=== PATIENT | female | born 1965 | race Caucasian/White ===

== ENCOUNTER 2017-09-17 17:19 | Emergency (ER) | payer OTHER ==
[~2017-09-17] VITALS: Ht 160 cm; Wt 53.5 kg
[~2017-09-17 17:19] MED LIST: AUGM875T PO; BACT800T5 PO; FLUT50SP EACH NARE; IBUP600 PO; IBUP600T26 PO; METH10TA PO; ST J81CH PO; [UNRECOGNIZED DRUG - OTHER] TOP
[2017-09-17 17:20] VITALS: BP 119/73; PULSE 63; RESP 15; TEMP 97.8; O2SAT 97
--- NOTE | 2017-09-17 17:36 | PD ---
HPI Chief Complaint: Psychiatric Symptoms Time Seen by Provider: 17:30 Travel History International Travel<30 days: No Contact w/Intl Traveler<30days: No History of Present Illness HPI 52-year-old female brought in by police under the Castellon act for suicidal ideation. Castellon act states that the patient is upset about her recent of her friend, and made statements that she should go ahead and end her life as well. The patient then obtained a kitchen knife before her friend took it away and called the police. Patient appears intoxicated. She is a poor historian. Patient has history of MRSA. Patient has no known drug allergies. PFSH Past Medical History Hx Anticoagulant Therapy: No Arthritis: Yes Asthma: Yes Autoimmune Disease: No Anxiety: Yes Depression: Yes Heart Rhythm Problems: No Cancer: No Cardiovascular Problems: No High Cholesterol: No Chemotherapy: No Chest Pain: No Congestive Heart Failure: No COPD: No Cerebrovascular Accident: No Diabetes: No Diminished Hearing: No Endocrine: No GERD: No Genitourinary: No Hiatal Hernia: No Immune Disorder: No Kidney Stones: No Musculoskeletal: No Neurologic: Yes Psychiatric: Yes (BIPOLAR) Reproductive: Yes Respiratory: Yes Migraines: Yes Radiation Therapy: No Renal Failure: No Seizures: No Sickle Cell Disease: No Sleep Apnea: No Thyroid Disease: No Ulcer: No Menopausal: Yes Ectopic : Yes Tubal Ligation: Yes Past Surgical History Abdominal Surgery: No AICD: No Arteriovenous Shunt: No Cardiac Surgery: No Ear Surgery: Yes (tubes in childhood) Endocrine Surgery: No Eye Surgery: No Genitourinary Surgery: No Gynecologic Surgery: Yes (HYSTERECTOMY 1995) Hysterectomy: Yes Joint Replacement: No Oral Surgery: Yes (wisdom teeth) Pacemaker: No Thoracic Surgery: No Tonsillectomy: Yes Other Surgery: Yes (FISTULA) Social History Alcohol Use: Yes (OCC) Tobacco Use: Yes (1/2 PPD) Substance Use: Yes Allergies-Medications (Allergen,Severity, Reaction): Coded Allergies: *MDRO Multi-Drug Resistant Organism (Verified Adverse Reaction, Unknown, 05/08/16) MRSA 2014 MRSA leg wound 01/27/15. Reported Meds & Prescriptions Reported Meds & Active Scripts Active Reported Methadone (Methadone HCl) 5 Mg Tab 2.5 Mg PO DAILY Review of Systems ROS Limitations: Intoxication, Poor Historian Except as stated in HPI: all other systems reviewed are Neg General / Constitutional: No: Fever Eyes: No: Visual changes HENT: No: Headaches Cardiovascular: No: Chest Pain or Discomfort Respiratory: No: Shortness of Breath Gastrointestinal: No: Abdominal Pain Genitourinary: No: Dysuria Musculoskeletal: No: Pain Skin: No Rash Neurologic: No: Weakness Psychiatric: No: Depression Endocrine: No: Polydipsia Hematologic/Lymphatic: No: Easy Bruising Physical Exam Exam Limitations: Intoxication, Poor Historian Narrative GENERAL: SKIN: Warm and dry. HEAD: Atraumatic. Normocephalic. EYES: Pupils equal and round. No scleral icterus. No injection or drainage. ENT: No nasal bleeding or discharge. Mucous membranes pink and moist. NECK: Trachea midline. No JVD. CARDIOVASCULAR: Regular rate and rhythm. RESPIRATORY: No accessory muscle use. Clear to auscultation. Breath sounds equal bilaterally. GASTROINTESTINAL: Abdomen soft, non-tender, nondistended. Hepatic and splenic margins not palpable. MUSCULOSKELETAL: Extremities without clubbing, cyanosis, or edema. No obvious deformities. NEUROLOGICAL: Awake and alert. No obvious cranial nerve deficits. Motor grossly within normal limits. Five out of 5 muscle strength in the arms and legs. Normal speech. PSYCHIATRIC: Appropriate mood and affect; insight and judgment normal. Data Data Last Documented VS Vital Signs Date Time Temp Pulse Resp B/P (MAP) Pulse Ox O2 Delivery O2 Flow Rate FiO2 09/17/17 17:20 97.8 63 15 119/73 (88) 97 Orders Orders Complete Blood Count With Diff (09/17/17 17:32) Comprehensive Metabolic Panel (09/17/17 17:32) Thyroid Stimulating Hormone (09/17/17 17:32) Urinalysis - C+S If Indicated (09/17/17 17:32) Psych Screen (09/17/17 17:32) Drug Screen, Random Urine (09/17/17 17:32) Alcohol (Ethanol) (09/17/17 17:32) Labs Laboratory Tests Test 09/17/17 17:45 White Blood Count 7.9 TH/MM3 Red Blood Count 3.71 MIL/MM3 Hemoglobin 12.5 GM/DL Hematocrit 36.5 % Mean Corpuscular Volume 98.5 FL Mean Corpuscular Hemoglobin 33.6 PG Mean Corpuscular Hemoglobin Concent 34.1 % Red Cell Distribution Width 14.3 % Platelet Count 275 TH/MM3 Mean Platelet Volume 7.3 FL Neutrophils (%) (Auto) 75.6 % Lymphocytes (%) (Auto) 16.3 % Monocytes (%) (Auto) 5.8 % Eosinophils (%) (Auto) 1.8 % Basophils (%) (Auto) 0.5 % Neutrophils # (Auto) 6.0 TH/MM3 Lymphocytes # (Auto) 1.3 TH/MM3 Monocytes # (Auto) 0.5 TH/MM3 Eosinophils # (Auto) 0.1 TH/MM3 Basophils # (Auto) 0.0 TH/MM3 CBC Comment DIFF FINAL Differential Comment Urine Color YELLOW Urine Turbidity CLEAR Urine pH 6.0 Urine Specific [place] 1.004 Urine Protein NEG mg/dL Urine Glucose (UA) NEG mg/dL Urine Ketones NEG mg/dL Urine Occult Blood NEG Urine Nitrite NEG Urine Bilirubin NEG Urine Urobilinogen LESS THAN 2.0 MG/DL Urine Leukocyte Esterase LARGE Urine WBC 3 /hpf Urine Squamous Epithelial Cells 1 /hpf Urine Transitional Epithelial Cells <1 /hpf Microscopic Urinalysis Comment CULT NOT INDICATED Urine Opiates Screen NEG Urine Barbiturates Screen NEG Urine Amphetamines Screen NEG Urine Benzodiazepines Screen NEG Urine Cocaine Screen POS Urine Cannabinoids Screen NEG MDM Medical Decision Making Medical Screen Exam Complete: Yes Emergency Medical Condition: Yes Differential Diagnosis Castellon act. Depression. Suicidal ideation. Substance abuse. Narrative Course Psychiatric labs ordered per protocol. Psych screen is ordered. 1900 hrs. care of the patient is assumed by Navdeep Up PA-C who will medically clear the patient pending labs. Condition: Stable Kareem Keller Sep 17, 2017 17:36
[2017-09-17] MEDS ORDERED: METH5TAB PO (18:06)
[2017-09-17 18:20] LABS: BASOPHIL % 0.5 % (0.0-2.0); EOSINOPHIL # 0.1 TH/MM3 (0-0.4); EOSINOPHIL % 1.8 % (0.0-4.0); HEMATOCRIT 36.5 % (35.0-46.0); HEMOGLOBIN 12.5 GM/DL (11.6-15.3); LYMPH % 16.3 % (9.0-44.0); LYMPHOCYTE # 1.3 TH/MM3 (1.0-4.8); MEAN CELL VOLUME 98.5 FL (80.0-100.0); MEAN CORPUSCULAR HEMOGLOBIN 33.6 PG (27.0-34.0); MEAN CORPUSCULAR HGB CONC 34.1 % (32.0-36.0); MEAN PLATELET VOLUME 7.3 FL (7.0-11.0); MONO % 5.8 % (0.0-8.0); MONOCYTE # 0.5 TH/MM3 (0-0.9); NEUT % 75.6 % (16.0-70.0); PLATELET COUNT 275 TH/MM3 (150-450); RED BLOOD COUNT 3.71 MIL/MM3 (4.00-5.30); RED CELL DISTRIBUTION WIDTH 14.3 % (11.6-17.2); WHITE BLOOD COUNT 7.9 TH/MM3 (4.0-11.0)
[2017-09-17 18:31] LABS: BILIRUBIN, URINE NEG (NEG); BLOOD, URINE NEG (NEG); GLUCOSE,URINE NEG (NEG); KETONE, URINE NEG (NEG); NITRITE,URINE NEG (NEG); SQUAMOUS EPITHELIAL CELL URINE 1 /hpf (0-5); TRANSITIONAL EPI CELLS, URINE <1 /hpf; URINE COLOR YELLOW (YELLW/STRAW); URINE LEUKOCYTE ESTERASE LARGE (NEG)
[2017-09-17 18:34] LABS: ALBUMIN 3.3 GM/DL (3.4-5.0); ALT (GPT) 21 U/L (10-53); AST (GOT) 40 U/L (15-37); BICARBONATE 25.9 MEQ/L (21.0-32.0); BLOOD UREA NITROGEN 3 MG/DL (7-18); CALCIUM 8.1 MG/DL (8.5-10.1); CHLORIDE 98 MEQ/L (98-107); CREATININE 0.49 MG/DL (0.50-1.00); GLOMERULAR FILTRATION RATE 132 ML/MIN (>89); GLUCOSE,RANDOM 73 MG/DL (74-106); SODIUM (NA) 135 MEQ/L (136-145)
[2017-09-17 18:43] LABS: ALKALINE PHOSPHATASE 91 U/L (45-117); TOTAL BILIRUBIN ADULT 0.1 MG/DL (0.2-1.0); TOTAL PROTEIN 7.8 GM/DL (6.4-8.2)
[2017-09-18 02:19] VITALS: BP 136/79; PULSE 72; RESP 18; O2SAT 95
[2017-09-18 06:47] VITALS: BP 115/58; PULSE 88; RESP 18; O2SAT 95
--- NOTE | 2017-09-18 13:00 | PD ---
History of Present Illness Chief Complaint: Psychiatric Symptoms Time Seen by Provider: 12:45 Travel History International Travel<30 Days: No Contact w/Intl Traveler<30days: No Known affected area: No Legal Status Legal Status: Castellon Act Castellon Act Signed By: Lion [place] History of Present Illness: History of Present Illness HPI 52-year-old female with no reported psychiatric history, history of substance abuse including alcohol and cocaine who is brought in by police under the Castellon act. The Castellon act report alleges that the patient is depressed about her good friend's passing, that she made statements that she should just go ahead and and her life as well. She then proceeded to obtain a kitchen knife before her boy friend took it away. The patient did not inflict any injury to herself. Upon arrival to the ED the patient appears intoxicated and her blood alcohol level on arrival was 337. Review of lab work indicated positive toxicology for cocaine. Patient was allowed to sober up clinically and secure environment and she presented no behavioral concerns and no suicidality. EMR is reviewed. No previous contact with [facility] psychiatry. Patient is seen this morning. She is clinically sober. Her speech is clear, logical and goal directed of normal rate and tone. Her gait is steady. She presents no indication that she is experiencing any hallucinations, no delusions and no paranoia. Mood is euthymic. She states "I was too drunk last night. I don't want to hurt myself. I find every day for my life." She admits to feeling sad over the recent of a close friend. She denies any significant depressive symptoms. Patient denies any suicidal or homicidal ideation, intent or plan. She is eager to be discharged as she goes to a clinic on a daily basis for methadone for treatment of pain. Patient denies that she drinks on a daily basis. She does admit to having used cocaine during the weekend. Remainder review of systems is negative. PFSH Past Medical History Hx Anticoagulant Therapy: No Arthritis: Yes Asthma: Yes Autoimmune Disease: No Bipolar Disorder: Yes Anxiety: Yes Depression: Yes Heart Rhythm Problems: No Cancer: No Cardiovascular Problems: No High Cholesterol: No Chemotherapy: No Chest Pain: No Congestive Heart Failure: No COPD: No Cerebrovascular Accident: No Diabetes: No Diminished Hearing: No Endocrine: No GERD: No Genitourinary: No Headaches: Yes Hiatal Hernia: No Immune Disorder: No Kidney Stones: No Musculoskeletal: No Neurologic: Yes Psychiatric: Yes (BIPOLAR) Reproductive: Yes Respiratory: Yes Migraines: Yes Radiation Therapy: No Renal Failure: No Seizures: No Sickle Cell Disease: No Sleep Apnea: No Thyroid Disease: No Ulcer: No Tetanus Vaccination: < 5 Years Influenza Vaccination: No ?: Not Menopausal: Yes Ectopic : Yes Tubal Ligation: Yes Past Surgical History Abdominal Surgery: No AICD: No Arteriovenous Shunt: No Cardiac Surgery: No Ear Surgery: Yes (tubes in childhood) Endocrine Surgery: No Eye Surgery: No Genitourinary Surgery: No Gynecologic Surgery: Yes (HYSTERECTOMY 1995) Hysterectomy: Yes Joint Replacement: No Oral Surgery: Yes (wisdom teeth) Pacemaker: No Thoracic Surgery: No Tonsillectomy: Yes Tympanostomy Tube: Yes Other Surgery: Yes (FISTULA) Psychiatric History Psychiatric History Hx Psychiatric Treatment: PATIENT DENIES DURING ASSESSMENT. Is taking Elavil for treatment of pain. Has seen Dr. Diaz. Denies any history of previous suicide attempts. Denies any history of self-injurious behavior. History of Inpatient Treatment: No Guns or firearms in home: No Social History Patient is single. Lives with a friend. She completed high school. She is unemployed. Hx Alcohol Use: Yes (OCC) Hx Tobacco Use: Yes (1/2 PPD) Hx Substance Use: Yes Substance Use Type: Alcohol, Cocaine Hx of Substance Use Treatment: No Family Psychiatric History Negative Allergies-Medications (Allergen,Severity, Reaction): Coded Allergies: *MDRO Multi-Drug Resistant Organism (Verified Adverse Reaction, Unknown, 05/08/16) MRSA 2014 MRSA leg wound 01/27/15. Reported Meds & Prescriptions Reported Meds & Active Scripts Active Reported Methadone (Methadone HCl) 5 Mg Tab 2.5 Mg PO DAILY Review of Systems Musculoskeletal: COMPLAINS OF: Joint pain, Back pain Psychiatric: DENIES: Anxiety, Confusion, Mood changes, Depression, Hallucinations, Agitation, Suicidal Ideation, Homicidal Ideation, Delusions Except as stated in HPI: all other systems reviewed are Neg Mental Status Examination Appearance: Appropriate Consciousness: Alert Orientation: x4 Motor Activity: Normal gait Speech: Unremarkable Language: Adequate Fund of Knowledge: Adequate Attention and Concentration: Adequate Memory: Unremarkable Mood: Appropriate Affect: Appropriate Thought Process & Associations: Intact, Logical, Goal directed Thought Content: Appropriate Hallucination Type: None Delusion Type: None Suicidal Ideation: No Suicidal Plan: No Suicidal Intention: No Homicidal Ideation: No Homicidal Plan: No Homicidal Intention: No Insight: Fair Judgment: Adequate MDM Medical Decision Making Medical Record Reviewed: Yes Assessment/Plan 52-year-old female with no reported psychiatric history, history of substance abuse including alcohol and cocaine who is brought in by police under the Castellon act. The Castellon act report alleges that the patient is depressed about her good friend's passing. That she made statements that she should just go ahead and in her life as well. She then proceeded to obtain a kitchen knife before her boy friend took it away. The patient did not inflict any injury to herself. Upon arrival to the ED the patient appears intoxicated and her blood alcohol level on arrival was 337. Review of lab work indicated positive toxicology for cocaine. Patient was allowed to sober up clinically and secure environment and she presented no behavioral concerns and no suicidality. The patient once clinically sober denies any suicidal or homicidal ideation, intent or plan. She acknowledges that she was intoxicated at the time that the Castellon act was initiated. Patient presents no evidence of unstable mental illness and presents no criteria to remain under the Castellon act. She denies that she has a problem with alcohol or cocaine use and that this is only recreational. BA is lifted. Psychiatrically clear for discharge from the ED Orders Orders Complete Blood Count With Diff (09/17/17 17:32) Comprehensive Metabolic Panel (09/17/17 17:32) Thyroid Stimulating Hormone (09/17/17 17:32) Urinalysis - C+S If Indicated (09/17/17 17:32) Psych Screen (09/17/17 17:32) Drug Screen, Random Urine (09/17/17 17:32) Alcohol (Ethanol) (09/17/17 17:32) Diet Regular Basic (09/18/17 Breakfast) Diet Regular Basic (09/18/17 Lunch) Results Vital Signs Date Time Temp Pulse Resp B/P (MAP) Pulse Ox O2 Delivery O2 Flow Rate FiO2 09/18/17 06:47 88 18 115/58 (77) 95 Room Air 09/18/17 02:19 72 18 136/79 (98) 95 Room Air 09/17/17 17:20 97.8 63 15 119/73 (88) 97 Laboratory Tests Test 09/17/17 17:45 White Blood Count 7.9 Red Blood Count 3.71 Hemoglobin 12.5 Hematocrit 36.5 Mean Corpuscular Volume 98.5 Mean Corpuscular Hemoglobin 33.6 Mean Corpuscular Hemoglobin Concent 34.1 Red Cell Distribution Width 14.3 Platelet Count 275 Mean Platelet Volume 7.3 Neutrophils (%) (Auto) 75.6 Lymphocytes (%) (Auto) 16.3 Monocytes (%) (Auto) 5.8 Eosinophils (%) (Auto) 1.8 Basophils (%) (Auto) 0.5 Neutrophils # (Auto) 6.0 Lymphocytes # (Auto) 1.3 Monocytes # (Auto) 0.5 Eosinophils # (Auto) 0.1 Basophils # (Auto) 0.0 CBC Comment DIFF FINAL Differential Comment Urine Color YELLOW Urine Turbidity CLEAR Urine pH 6.0 Urine Specific [place] 1.004 Urine Protein NEG Urine Glucose (UA) NEG Urine Ketones NEG Urine Occult Blood NEG Urine Nitrite NEG Urine Bilirubin NEG Urine Urobilinogen LESS THAN 2.0 Urine Leukocyte Esterase LARGE Urine WBC 3 Urine Squamous Epithelial Cells 1 Urine Transitional Epithelial Cells <1 Microscopic Urinalysis Comment CULT NOT INDICATED Blood Urea Nitrogen 3 Creatinine 0.49 Random Glucose 73 Total Protein 7.8 Albumin 3.3 Calcium Level 8.1 Alkaline Phosphatase 91 Aspartate Amino Transf (AST/SGOT) 40 Alanine Aminotransferase (ALT/SGPT) 21 Total Bilirubin 0.1 Sodium Level 135 Potassium Level 4.0 Chloride Level 98 Carbon Dioxide Level 25.9 Anion Gap 11 Estimat Glomerular Filtration Rate 132 Thyroid Stimulating Hormone 3rd Gen 10.200 Urine Opiates Screen NEG Urine Barbiturates Screen NEG Urine Amphetamines Screen NEG Urine Benzodiazepines Screen NEG Urine Cocaine Screen POS Urine Cannabinoids Screen NEG Ethyl Alcohol Level 337 Diagnosis Primary Impression: alcohol abuse with intoxication Additional Impression: Cocaine abuse Psychiatrically Cleared: Yes Med/ Other Pt Specific Info: No Change to Meds Disposition: 01 DISCHARGE HOME Condition: Stable Problem Qualifiers Nathalie Combs Sep 18, 2017 13:00
--- NOTE | 2017-09-18 13:00 | PD ---
Physical Exam Date Seen by Provider: Sep 18, 2017 Time Seen by Provider: 12:59 Narrative 52-year-old female previously Castellon acted and medically cleared for psychiatric evaluation, has been seen by psychiatric services and deemed psychiatrically stable for discharge at this time. Patient will follow-up as per psychiatric note. Patient remains medically stable at this time. Data Data Last Documented VS Vital Signs Date Time Temp Pulse Resp B/P (MAP) Pulse Ox O2 Delivery O2 Flow Rate FiO2 09/18/17 06:47 88 18 115/58 (77) 95 Room Air 09/17/17 17:20 97.8 Orders Orders Complete Blood Count With Diff (09/17/17 17:32) Comprehensive Metabolic Panel (09/17/17 17:32) Thyroid Stimulating Hormone (09/17/17 17:32) Urinalysis - C+S If Indicated (09/17/17 17:32) Psych Screen (09/17/17 17:32) Drug Screen, Random Urine (09/17/17 17:32) Alcohol (Ethanol) (09/17/17 17:32) Diet Regular Basic (09/18/17 Breakfast) Diet Regular Basic (09/18/17 Lunch) Labs Laboratory Tests Test 09/17/17 17:45 White Blood Count 7.9 TH/MM3 Red Blood Count 3.71 MIL/MM3 Hemoglobin 12.5 GM/DL Hematocrit 36.5 % Mean Corpuscular Volume 98.5 FL Mean Corpuscular Hemoglobin 33.6 PG Mean Corpuscular Hemoglobin Concent 34.1 % Red Cell Distribution Width 14.3 % Platelet Count 275 TH/MM3 Mean Platelet Volume 7.3 FL Neutrophils (%) (Auto) 75.6 % Lymphocytes (%) (Auto) 16.3 % Monocytes (%) (Auto) 5.8 % Eosinophils (%) (Auto) 1.8 % Basophils (%) (Auto) 0.5 % Neutrophils # (Auto) 6.0 TH/MM3 Lymphocytes # (Auto) 1.3 TH/MM3 Monocytes # (Auto) 0.5 TH/MM3 Eosinophils # (Auto) 0.1 TH/MM3 Basophils # (Auto) 0.0 TH/MM3 CBC Comment DIFF FINAL Differential Comment Urine Color YELLOW Urine Turbidity CLEAR Urine pH 6.0 Urine Specific [place] 1.004 Urine Protein NEG mg/dL Urine Glucose (UA) NEG mg/dL Urine Ketones NEG mg/dL Urine Occult Blood NEG Urine Nitrite NEG Urine Bilirubin NEG Urine Urobilinogen LESS THAN 2.0 MG/DL Urine Leukocyte Esterase LARGE Urine WBC 3 /hpf Urine Squamous Epithelial Cells 1 /hpf Urine Transitional Epithelial Cells <1 /hpf Microscopic Urinalysis Comment CULT NOT INDICATED Blood Urea Nitrogen 3 MG/DL Creatinine 0.49 MG/DL Random Glucose 73 MG/DL Total Protein 7.8 GM/DL Albumin 3.3 GM/DL Calcium Level 8.1 MG/DL Alkaline Phosphatase 91 U/L Aspartate Amino Transf (AST/SGOT) 40 U/L Alanine Aminotransferase (ALT/SGPT) 21 U/L Total Bilirubin 0.1 MG/DL Sodium Level 135 MEQ/L Potassium Level 4.0 MEQ/L Chloride Level 98 MEQ/L Carbon Dioxide Level 25.9 MEQ/L Anion Gap 11 MEQ/L Estimat Glomerular Filtration Rate 132 ML/MIN Thyroid Stimulating Hormone 3rd Gen 10.200 uIU/ML Urine Opiates Screen NEG Urine Barbiturates Screen NEG Urine Amphetamines Screen NEG Urine Benzodiazepines Screen NEG Urine Cocaine Screen POS Urine Cannabinoids Screen NEG Ethyl Alcohol Level 337 MG/DL [facility] Medical Record Reviewed: Yes Supervised Visit with KLAUDIA: Yes Narrative Course 52-year-old female previously Castellon acted and medically cleared for psychiatric evaluation, has been seen by psychiatric services and deemed psychiatrically stable for discharge at this time. Patient will follow-up as per psychiatric note. Patient remains medically stable at this time. Patient Instructions: General Instructions Disposition: 01 DISCHARGE HOME Condition: Stable Kareem Keller Sep 18, 2017 13:00
== END 2017-09-18 13:11 | disposition home or self-care (01) ==
LOC: NEDAMB 17:19 → NEPJ 09-18 13:11
DX: F10.129 Alcohol abuse with intoxication, unspecified (principal); F14.10 Cocaine abuse, uncomplicated; F17.200 Nicotine dependence, unspecified, uncomplicated; F31.9 Bipolar disorder, unspecified; Y90.8 Blood alcohol level of 240 mg/100 ml or more
CPT/HCPCS: 80053; 80307; 81001; 84443; 85025; 99284

== ENCOUNTER 2017-11-22 11:47 | Inpatient (IN) | payer OTHER ==
[~2017-11-22] VITALS: Ht 157.5 cm; Wt 53.6 kg
[2017-11-22] VITALS (9 sets, daily range): BP systolic 128–166; BP diastolic 70–88; PULSE 62–81; RESP 16–24; TEMP 98.4–98.5; O2SAT 91–95
[~2017-11-22 11:47] MED LIST changes: -AUGM875T PO; -BACT800T5 PO; -FLUT50SP EACH NARE; -IBUP600 PO; -IBUP600T26 PO; -METH10TA PO; +METH5TAB PO; -ST J81CH PO; -[UNRECOGNIZED DRUG - OTHER] TOP
[2017-11-22] MEDS ORDERED: SODIUM CHLOR 0.9% 1000 ML INJ 1,000 ML IV ONE (12:32)
[2017-11-22] MEDS ORDERED: chlordiazePOXIDE 25 MG CAP PO STA (12:32)
[2017-11-22] MEDS ORDERED: SODIUM CHLORIDE 0.9% FLUSH 10 ML FLUSH IVF PRN (12:45)
[2017-11-22] MEDS ORDERED: ZOLO50TA PO (12:58)
[2017-11-22] MEDS ORDERED: LIDO1SOL8 SWISH-SWAL (12:58)
[2017-11-22] MEDS ORDERED: ALPR.5 PO (12:58)
[2017-11-22] MEDS ORDERED: HYDR50TA94 PO (12:58)
--- NOTE | 2017-11-22 12:59 | RADRPT ---
EXAM DATE: 11/22/2017 12:55 PM EDT AGE/SEX: 52 years / Female INDICATIONS: Palpations. CLINICAL DATA: This is the patient's initial encounter. Patient reports that signs and symptoms have been present for 2 days and indicates a pain score of 1/10. MEDICAL/SURGICAL HISTORY: . asbestosis. None. COMPARISON: [facility] [place], CHEST PA & LAT, 05/08/2016. . FINDINGS: A single AP view of the chest demonstrates the lungs to be symmetrically aerated without evidence of mass, infiltrate or effusion. There are mild chronic interstitial changes bilaterally. The cardiomed iastinal contours are unremarkable. Osseous structures are intact. No significant changes compared to the prior study. There is a right-sided [id number] in place. No pneumothorax. CONCLUSION: No acute intrathoracic disease. No significant change compared to the prior study. Electronically signed by: Donovan Potter MD 11/22/2017 12:57 PM EDT
[2017-11-22] MEDS ORDERED: PROCHLORPERAZINE INJ 10 MG/2 ML VIAL IV PUSH ONE (13:00)
[2017-11-22 14:02] LABS: AUTOMATED NEUTROPHIL # 2.9 TH/MM3 (1.8-7.7); BASOPHIL % 0.2 % (0.0-2.0); HEMATOCRIT 35.5 % (35.0-46.0); HEMOGLOBIN 12.3 GM/DL (11.6-15.3); LYMPH % 3.6 % (9.0-44.0); LYMPHOCYTE # 0.1 TH/MM3 (1.0-4.8); MEAN CELL VOLUME 103.8 FL (80.0-100.0); MEAN CORPUSCULAR HGB CONC 34.7 % (32.0-36.0); MEAN PLATELET VOLUME 9.4 FL (7.0-11.0); MONO % 5.6 % (0.0-8.0); MONOCYTE # 0.2 TH/MM3 (0-0.9); NEUT % 90.6 % (16.0-70.0); PLATELET COUNT 112 TH/MM3 (150-450); RED BLOOD COUNT 3.42 MIL/MM3 (4.00-5.30); RED CELL DISTRIBUTION WIDTH 15.7 % (11.6-17.2); WHITE BLOOD COUNT 3.2 TH/MM3 (4.0-11.0)
[2017-11-22 14:17] LABS: PROTHROMBIN TIME - PATIENT 10.6 SEC (9.8-11.6)
[2017-11-22 14:28] LABS: BILIRUBIN, URINE NEG (NEG); BLOOD, URINE NEG (NEG); GLUCOSE,URINE 150 mg/dL (NEG); KETONE, URINE 10 mg/dL (NEG); MUCUS URINE FEW /lpf (OCC); NITRITE,URINE NEG (NEG); PH, URINE 6.5 (5.0-8.5); SQUAMOUS EPITHELIAL CELL URINE 1 /hpf (0-5); TRANSITIONAL EPI CELLS, URINE <1 /hpf; URINE COLOR YELLOW (YELLW/STRAW); URINE LEUKOCYTE ESTERASE MOD (NEG)
[2017-11-22 14:29] LABS: ALBUMIN 3.5 GM/DL (3.4-5.0); ALT (GPT) 52 U/L (10-53); AST (GOT) 137 U/L (15-37); BICARBONATE 29.3 MEQ/L (21.0-32.0); BLOOD UREA NITROGEN 2 MG/DL (7-18); CALCIUM 8.4 MG/DL (8.5-10.1); CHLORIDE 90 MEQ/L (98-107); CREATININE 0.52 MG/DL (0.50-1.00); GLOMERULAR FILTRATION RATE 123 ML/MIN (>89); GLUCOSE,RANDOM 187 MG/DL (74-106); SODIUM (NA) 130 MEQ/L (136-145)
[2017-11-22 14:33] LABS: ALKALINE PHOSPHATASE 157 U/L (45-117); TOTAL BILIRUBIN ADULT 0.5 MG/DL (0.2-1.0); TROPONIN I LESS THAN 0.02 NG/ML (0.02-0.05)
--- NOTE | 2017-11-22 14:46 | RADRPT ---
EXAM DATE: 11/22/2017 2:42 PM EDT AGE/SEX: 52 years / Female INDICATIONS: Dizziness today. CLINICAL DATA: This is the patient's initial encounter. Patient reports that signs and symptoms have been present for 1 day and indicates a pain score of 5/10. MEDICAL/SURGICAL HISTORY: Hepatitis C. Hysterectomy. RADIATION DOSE: 34.68 CTDI (mGy) COMPARISON: None. TECHNIQUE: CT of the head without contrast. Using automated exposure control and adjustment of the mA and/or kV according to patient size, radiation dose was kept as low as reasonably achievable to ob tain optimal diagnostic quality images. FINDINGS: Cerebrum: The ventricles are normal for age. No evidence of midline shift, mass lesion, hemorrhage or acute infarction. No extraaxial fluid collections are seen. Posterior Fossa: The cerebellum and brainstem are intact. The 4th ventricle is midline. The cerebe llopontine angle is unremarkable. Extracranial: The visualized portion of the orbits is intact. Skull: The calvaria is intact. No evidence of skull fracture. CONCLUSION: 1. Negative CT Head non contrast. Electronically signed by: Errol Cohen MD 11/22/2017 2:45 PM EDT
--- NOTE | 2017-11-22 15:33 | PD ---
HPI Chief Complaint: Syncope/Near-Syncope Time Seen by Provider: 12:03 Travel History International Travel<30 days: No Contact w/Intl Traveler<30days: No Traveled to known affect area: No History of Present Illness HPI Patient is a 52-year-old female who comes in complaining of dizziness and a syncopal episode. She says that she has been feeling very shaky for the past few days with some nausea and vomiting today. She says earlier this morning she passed out. Her boyfriend was with her and caught her. She did not fall or hit her head. She has not had any fever or chills. She is a chronic drinker , but last drink last night. She denies any abdominal pain. She denies chest pain or shortness of breath. Severity is mild to moderate. PFSH Past Medical History Hx Anticoagulant Therapy: No Arthritis: Yes Asthma: Yes Autoimmune Disease: No Bipolar Disorder: Yes Anxiety: Yes Depression: Yes Heart Rhythm Problems: No Cancer: No Cardiovascular Problems: No High Cholesterol: No Chemotherapy: No Chest Pain: No Congestive Heart Failure: No COPD: Yes Cerebrovascular Accident: No Diabetes: No Diminished Hearing: No Endocrine: No GERD: No Genitourinary: No Headaches: Yes Hiatal Hernia: No Immune Disorder: No Kidney Stones: No Musculoskeletal: No Neurologic: Yes Psychiatric: Yes (BIPOLAR) Reproductive: Yes Respiratory: Yes (COPD) Immunizations Current: No Migraines: Yes Radiation Therapy: No Renal Failure: No Seizures: No Sickle Cell Disease: No Sleep Apnea: No Thyroid Disease: No Ulcer: No Tetanus Vaccination: < 5 Years Influenza Vaccination: No ?: Not Menopausal: Yes Ectopic : Yes Tubal Ligation: Yes Past Surgical History Abdominal Surgery: No AICD: No Arteriovenous Shunt: No Cardiac Surgery: No Ear Surgery: Yes (tubes in childhood) Endocrine Surgery: No Eye Surgery: No Genitourinary Surgery: No Gynecologic Surgery: Yes (HYSTERECTOMY 1995) Hysterectomy: Yes Joint Replacement: No Oral Surgery: Yes (wisdom teeth) Pacemaker: No Thoracic Surgery: No Tonsillectomy: Yes Tympanostomy Tube: Yes Other Surgery: Yes (FISTULA) Social History Alcohol Use: Yes (HX : ETOH ABUSE ) Tobacco Use: Yes (2 PPD) Substance Use: No Allergies-Medications (Allergen,Severity, Reaction): Coded Allergies: *MDRO Multi-Drug Resistant Organism (Verified Adverse Reaction, Unknown, ) MRSA 2014 MRSA leg wound 01/27/15. Reported Meds & Prescriptions Reported Meds & Active Scripts Active Reported Zoloft (Sertraline HCl) 50 Mg Tab 50 Mg PO DAILY Xanax (Alprazolam) 0.5 Mg Tab 0.5 Mg PO DAILY PRN Hydroxyzine HCl 50 Mg Tab 50 Mg PO Q6HR Lidocaine Viscous Liq 2 % Liqd 15 Ml SWISH-SWAL Q4HR PRN 10 Days Mix 15ml with water Methadone (Methadone HCl) 5 Mg Tab 2.5 Mg PO DAILY Review of Systems Except as stated in HPI: all other systems reviewed are Neg General / Constitutional: No: Fever, Chills HENT: No: Headaches, Lightheadedness Cardiovascular: No: Chest Pain or Discomfort Respiratory: No: Shortness of Breath Gastrointestinal: Positive: Nausea, Vomiting Skin: No Rash, No Change in Pigmentation Neurologic: Positive: Syncope Physical Exam Narrative GENERAL: Awake and alert, in no acute distress. SKIN: Focused skin assessment warm/dry. HEAD: Atraumatic. Normocephalic. EYES: Pupils equal and round. No scleral icterus. No injection or drainage. ENT: Tongue fasciculations. Mucous membranes pink and moist. NECK: Trachea midline. No JVD. CARDIOVASCULAR: Regular rate and rhythm. No murmur appreciated. RESPIRATORY: No accessory muscle use. Clear to auscultation. Breath sounds equal bilaterally. GASTROINTESTINAL: Abdomen soft, non-tender, nondistended. MUSCULOSKELETAL: No obvious deformities. No clubbing. No cyanosis. No edema. NEUROLOGICAL: Awake and alert. No obvious cranial nerve deficits. Motor grossly within normal limits. Normal speech. Mild tremors present. PSYCHIATRIC: Appropriate mood and affect; insight and judgment normal. Data Data Last Documented VS Vital Signs Date Time Temp Pulse Resp B/P (MAP) Pulse Ox O2 Delivery O2 Flow Rate FiO2 11/22/17 15:00 70 18 93 Room Air 11/22/17 11:48 98.5 Orders Orders Complete Blood Count With Diff (11/22/17 12:32) Comprehensive Metabolic Panel (11/22/17 12:32) Troponin I (11/22/17 12:32) Act Partial Throm Time (Ptt) (11/22/17 12:32) Prothrombin Time / Inr (Pt) (11/22/17 12:32) Urinalysis - C+S If Indicated (11/22/17 12:32) Chest, Single Ap (11/22/17 12:32) Ct Brain W/O Iv Contrast(Rout) (11/22/17 12:32) Ecg Monitoring (11/22/17 12:32) Iv Access Insert/Monitor (11/22/17 12:32) Oximetry (11/22/17 12:32) Sodium Chloride 0.9% Flush (Ns Flush) (11/22/17 12:45) Sodium Chlor 0.9% 1000 Ml Inj (Ns 1000 M (11/22/17 12:32) Chlordiazepoxide (Librium) (11/22/17 12:32) Prochlorperazine Inj (Compazine Inj) (11/22/17 13:00) Admit Order (Ed Use Only) (11/22/17 ) Place In Observation (11/22/17 ) Vital Signs (Adult) Q4H (11/22/17 15:31) Detention Attendant / Telemetry JUSTIN.Q8H (11/22/17 15:31) Intake + Output JUSTIN.QSHIFT (11/22/17 15:31) Neuro Checks Q4H (11/22/17 15:31) Diet Heart Healthy (11/22/17 Dinner) Sodium Chloride 0.9% Flush (Ns Flush) (11/22/17 15:45) Sodium Chloride 0.9% Flush (Ns Flush) (11/22/17 21:00) Complete Blood Count With Diff (11/23/17 06:00) Comprehensive Metabolic Panel (11/22/17 15:31) Alcohol (Ethanol) (11/22/17 15:31) Drug Screen, Random Urine (11/22/17 15:31) Troponin I (11/22/17 15:31) Troponin I (11/22/17 21:31) Echo 2d Comp With Doppler (11/22/17 ) Eeg Study (11/22/17 ) Us Carotid Arteries Comp Bilat (11/22/17 ) Potassium Chloride (Kcl) (11/22/17 15:45) Alcohol Withdrawal Asmt-Ciwa Q4HX18 (11/22/17 15:31) Flumazenil Inj (Romazicon Inj) (11/22/17 15:45) Lorazepam (Ativan) (11/22/17 15:45) Lorazepam Inj (Ativan Inj) (11/22/17 15:45) Lorazepam (Ativan) (11/22/17 15:45) Lorazepam Inj (Ativan Inj) (11/22/17 15:45) Lorazepam Inj (Ativan Inj) (11/22/17 15:45) Lorazepam Inj (Ativan Inj) (11/22/17 15:45) Thiamine (Vit B1) (Vitamin B1) (11/22/17 15:45) Folic Acid (Folate) (11/22/17 15:45) Multivitamin (Theragran) (11/22/17 15:45) Labs Laboratory Tests Test 11/22/17 12:24 11/22/17 13:05 White Blood Count 3.2 TH/MM3 Red Blood Count 3.42 MIL/MM3 Hemoglobin 12.3 GM/DL Hematocrit 35.5 % Mean Corpuscular Volume 103.8 FL Mean Corpuscular Hemoglobin 36.0 PG Mean Corpuscular Hemoglobin Concent 34.7 % Red Cell Distribution Width 15.7 % Platelet Count 112 TH/MM3 Mean Platelet Volume 9.4 FL Neutrophils (%) (Auto) 90.6 % Lymphocytes (%) (Auto) 3.6 % Monocytes (%) (Auto) 5.6 % Eosinophils (%) (Auto) 0.0 % Basophils (%) (Auto) 0.2 % Neutrophils # (Auto) 2.9 TH/MM3 Lymphocytes # (Auto) 0.1 TH/MM3 Monocytes # (Auto) 0.2 TH/MM3 Eosinophils # (Auto) 0.0 TH/MM3 Basophils # (Auto) 0.0 TH/MM3 CBC Comment DIFF FINAL Differential Comment Prothrombin Time 10.6 SEC Prothromb Time International Ratio 1.0 RATIO Activated Partial Thromboplast Time 29.2 SEC Blood Urea Nitrogen 2 MG/DL Creatinine 0.52 MG/DL Random Glucose 187 MG/DL Total Protein 8.0 GM/DL Albumin 3.5 GM/DL Calcium Level 8.4 MG/DL Alkaline Phosphatase 157 U/L Aspartate Amino Transf (AST/SGOT) 137 U/L Alanine Aminotransferase (ALT/SGPT) 52 U/L Total Bilirubin 0.5 MG/DL Sodium Level 130 MEQ/L Potassium Level 3.3 MEQ/L Chloride Level 90 MEQ/L Carbon Dioxide Level 29.3 MEQ/L Anion Gap 11 MEQ/L Estimat Glomerular Filtration Rate 123 ML/MIN Troponin I LESS THAN 0.02 NG/ML Urine Color YELLOW Urine Turbidity CLEAR Urine pH 6.5 Urine Specific [place] 1.009 Urine Protein NEG mg/dL Urine Glucose (UA) 150 mg/dL Urine Ketones 10 mg/dL Urine Occult Blood NEG Urine Nitrite NEG Urine Bilirubin NEG Urine Urobilinogen LESS THAN 2.0 MG/DL Urine Leukocyte Esterase MOD Urine RBC 1 /hpf Urine WBC 7 /hpf Urine Squamous Epithelial Cells 1 /hpf Urine Transitional Epithelial Cells <1 /hpf Urine Mucus FEW /lpf Microscopic Urinalysis Comment CULT NOT INDICATED MDM Medical Decision Making Medical Screen Exam Complete: Yes Emergency Medical Condition: Yes Medical Record Reviewed: Yes Interpretation(s) ECG shows normal sinus rhythm at a rate of 71, no ST elevation or depression, normal intervals Differential Diagnosis Dehydration versus dysrhythmia versus ACS versus alcohol withdrawal Narrative Course Patient is a 52-year-old female who comes in complaining of a syncopal episode. Exam shows tongue fasciculations and tremors, likely due to alcohol withdrawal. IV established, labs sent. Labs are consistent with chronic alcoholism with an elevation in her AST, elevated MCV, sodium of 130. Patient given IV fluids, Librium. CT head shows no acute abnormalities. Chest x-ray shows no acute abnormalities. Last [address] 11/22/17 1232 Signed Impressions: CONCLUSION: 1. Negative CT Head non contrast. Chest X-Ray 11/22/17 1232 Signed Impressions: CONCLUSION: No acute intrathoracic disease. No significant change compared to the prior naresh dy. Patient placed in observation for further management. Diagnosis Primary Impression: Alcohol withdrawal Qualified Codes: F10.230 - Alcohol dependence with withdrawal, uncomplicated Additional Impression: Syncope Qualified Codes: R55 - Syncope and collapse Admitting Information Admitting Physician Requests: Observation Annie Cisse MD November 22, 2017 15:33
[2017-11-22] MEDS ORDERED: LORazepam 2 MG/ML VIAL IV PUSH PRN ×3 (15:45)
[2017-11-22] MEDS ORDERED: FLUMAZENIL 0.5 MG/5 ML VIAL IV PUSH PRN (15:45)
[2017-11-22] MEDS ORDERED: SODIUM CHLORIDE 0.9% FLUSH 10 ML FLUSH IV FLUSH PRN (15:45)
[2017-11-22] MEDS ORDERED: POTASSIUM CHLORIDE 20 MEQ CONTROLLED RELEASE TAB PO ONE (15:45)
[2017-11-22] MEDS ORDERED: LORazepam 2 MG TAB PO PRN (15:45)
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
[2017-11-22] MEDS: MULTIVITAMIN TAB PO SCH (16:19)
[2017-11-22] MEDS: FOLIC ACID 1 MG TAB PO SCH (16:19)
[2017-11-22] MEDS: THIAMINE HCL 100 MG TAB PO SCH (16:19)
--- NOTE | 2017-11-22 17:30 | EKG ---
Date Performed: 11/22/2017 Time Performed: 12:22:53 PTAGE: 52 years EKG: Sinus rhythm POSSIBLE LEFT ATRIAL ENLARGEMENT NONSPECIFIC T WAVE ABNORMALITY ABNORMAL ECG PREVIOUS TRACING : 01/29/2015 15.07 Compared to previous tracing, nonspecific T wave abnormalit y is now present. DOCTOR: Ariel Juan Interpretating Date/Time 11/22/2017 17:30:21
[2017-11-22] MEDS ORDERED: cloNIDine HCL 0.1 MG TAB PO PRN (18:45)
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
[2017-11-22] MEDS: SODIUM CHLORIDE 0.9% FLUSH 10 ML FLUSH IV FLUSH SCH (21:05)
[2017-11-22 22:16] LABS: ALBUMIN 3.1 GM/DL (3.4-5.0); ALKALINE PHOSPHATASE 137 U/L (45-117); ALT (GPT) 45 U/L (10-53); AST (GOT) 104 U/L (15-37); BLOOD UREA NITROGEN 3 MG/DL (7-18); CALCIUM 8.4 MG/DL (8.5-10.1); CHLORIDE 94 MEQ/L (98-107); CREATININE 0.37 MG/DL (0.50-1.00); GLOMERULAR FILTRATION RATE 183 ML/MIN (>89); GLUCOSE,RANDOM 78 MG/DL (74-106); SODIUM (NA) 133 MEQ/L (136-145); TOTAL BILIRUBIN ADULT 0.6 MG/DL (0.2-1.0); TOTAL PROTEIN 7.4 GM/DL (6.4-8.2)
[2017-11-22 22:19] LABS: TROPONIN I 5.79 NG/ML (0.02-0.05)
[2017-11-22] MEDS ORDERED: HEPARIN-D5W 25,000 U/250 ML 250 ML IV PRN (22:45)
[2017-11-22] MEDS ORDERED: HEPARIN SODIUM - IV 10,000 UNITS/10 ML VIAL IV PUSH ONE (22:45)
[2017-11-22] MEDS: LORazepam 1 MG TAB PO PRN (23:35)
[2017-11-22 23:42] LABS: HEMATOCRIT 34.4 % (35.0-46.0); HEMOGLOBIN 11.7 GM/DL (11.6-15.3); MEAN CORPUSCULAR HEMOGLOBIN 34.9 PG (27.0-34.0); MEAN CORPUSCULAR HGB CONC 33.9 % (32.0-36.0); MEAN PLATELET VOLUME 9.4 FL (7.0-11.0); PLATELET COUNT 117 TH/MM3 (150-450); RED BLOOD COUNT 3.34 MIL/MM3 (4.00-5.30); RED CELL DISTRIBUTION WIDTH 15.6 % (11.6-17.2); WHITE BLOOD COUNT 4.4 TH/MM3 (4.0-11.0)
[2017-11-22 23:56] LABS: INTERNATIONAL NORMALIZED RATIO 1.1 RATIO; PROTHROMBIN TIME - PATIENT 10.7 SEC (9.8-11.6)
[2017-11-23] VITALS (9 sets, daily range): BP systolic 104–128; BP diastolic 72–84; PULSE 78–97; RESP 16–19; TEMP 98.3–98.9; O2SAT 94–97
[2017-11-23 04:17] LABS: AUTOMATED NEUTROPHIL # 3.7 TH/MM3 (1.8-7.7); BASOPHIL % 0.3 % (0.0-2.0); EOSINOPHIL % 0.6 % (0.0-4.0); HEMATOCRIT 36.6 % (35.0-46.0); HEMOGLOBIN 12.7 GM/DL (11.6-15.3); LYMPH % 11.2 % (9.0-44.0); LYMPHOCYTE # 0.5 TH/MM3 (1.0-4.8); MEAN CELL VOLUME 102.8 FL (80.0-100.0); MEAN CORPUSCULAR HEMOGLOBIN 35.6 PG (27.0-34.0); MEAN CORPUSCULAR HGB CONC 34.6 % (32.0-36.0); MEAN PLATELET VOLUME 9.5 FL (7.0-11.0); MONO % 10.2 % (0.0-8.0); MONOCYTE # 0.5 TH/MM3 (0-0.9); NEUT % 77.7 % (16.0-70.0); PLATELET COUNT 104 TH/MM3 (150-450); RED BLOOD COUNT 3.56 MIL/MM3 (4.00-5.30); RED CELL DISTRIBUTION WIDTH 15.8 % (11.6-17.2); WHITE BLOOD COUNT 4.8 TH/MM3 (4.0-11.0)
[2017-11-23] MEDS ORDERED: HEPARIN SODIUM - IV 10,000 UNITS/10 ML VIAL IV PUSH PRN ×2 (04:45)
[2017-11-23] MEDS: FOLIC ACID 1 MG TAB PO SCH (07:30)
[2017-11-23] MEDS: METHADONE HCL 10 MG TAB PO SCH (07:30)
[2017-11-23] MEDS: SODIUM CHLORIDE 0.9% FLUSH 10 ML FLUSH IV FLUSH SCH ×2 (07:31→20:56)
[2017-11-23] MEDS: THIAMINE HCL 100 MG TAB PO SCH (07:31)
[2017-11-23] MEDS: MULTIVITAMIN TAB PO SCH (07:31)
[2017-11-23] MEDS: SERTRALINE HCL 50 MG TAB PO SCH (07:31)
[2017-11-23] MEDS ORDERED: NITROGLYCERIN 0.4 MG SL 25 TABS/BTL SL PRN (08:30)
--- NOTE | 2017-11-23 08:45 | HHI.PR ---
Subjective Remarks Follow-up on patient with syncopal episode. Patient seen and examined. Patient continues to have feelings of something "smothering her chest". States she is frightened to lie back because of the sensation. She reports nausea this morning but no vomiting. She complains of sweats. She reports feeling unsteady and having dizziness with standing up this am to use the bedside commode. She reports palpitations. She denies any shortness of breath but does report cough with yellowish-green sputum production. She admits to smoking cocaine the last time being several days ago. She denies any IV drug use for the past several years. She denies any urinary difficulties, diarrhea or constipation. Objective Vitals Vital Signs Date Time Temp Pulse Resp B/P (MAP) Pulse Ox O2 Delivery O2 Flow Rate FiO2 11/23/17 04:41 98.7 82 16 104/75 (85) 94 11/23/17 00:17 98.9 89 16 119/84 (96) 94 11/23/17 00:00 78 11/22/17 20:15 98.5 77 16 131/86 (101) 94 11/22/17 20:00 72 11/22/17 17:49 69 11/22/17 17:11 98.4 70 16 131/78 (95) 92 135/73 (93) 128/70 (89) 11/22/17 16:20 68 18 136/78 (97) 98 11/22/17 15:00 70 18 93 Room Air 11/22/17 14:00 66 18 94 11/22/17 13:00 62 18 157/88 (111) 95 Room Air 11/22/17 12:25 95 Room Air 11/22/17 11:48 98.5 81 24 166/83 (110) 91 Result Diagram: 11/23/17 0400 11/22/17 2100 Imaging Last Impressions Head CT 11/22/17 1232 Signed Impressions: CONCLUSION: 1. Negative CT Head non contrast. Chest X-Ray 11/22/17 1232 Signed Impressions: CONCLUSION: No acute intrathoracic disease. No significant change compared to the prior naresh dy. Carotid Artery Ultrasound 11/22/17 0000 Signed Impressions: CONCLUSION: 1. Right Internal Carotid Artery: No significant plaque or hemodynamically sig nificant stenosis. 2. Left Internal Carotid Artery: No significant plaque or hemodynamically sign ificant stenosis. 3. Antegrade flow both vertebral arteries. Objective Remarks GENERAL: Thin somewhat cachectic appearing disheveled female lying in bed, in no acute distress. Awake and alert. Sitting up in bed. SKIN: Warm and dry. No evidence of diaphoresis. No generalized rash. HEAD: Atraumatic. Normocephalic. EYES: Pupils equal round and reactive. Extraocular motions intact. No scleral icterus. No injection or drainage. ENT: Nose without drainage. Throat without erythema, tonsillar hypertrophy or exudate. Uvula midline. Airway patent. MMM. NECK: Trachea midline. CARDIOVASCULAR: Tachycardic without murmurs. RESPIRATORY: Nonlabored. Coarse breath sounds are clear with coughing. Clear to auscultation. Breath sounds equal bilaterally. No wheezing. GASTROINTESTINAL: Abdomen soft, non-tender, nondistended. No guarding. +BS. MUSCULOSKELETAL: Extremities without any cyanosis or clubbing. Trace lower extremity edema noted. No obvious deformities. NEUROLOGICAL: Awake and alert. Able to move all extremities spontaneously. No focal neurologic findings. Normal speech. PSYCHIATRIC: Calm and cooperative examination. Judgment and insight questionable. Procedures None A/P Assessment and Plan 52-year-old female with past medical history significant for previous history of IV drug use, alcohol abuse, cocaine use, COPD, chronic pain on methadone, hep C and history of histoplasmosis admitted with syncopal episode. Elevated troponins in patient with active cocaine use Trops 0.02, 5.79, 2.90 NSTEMI -Patient placed on heparin drip overnight, continue -Cardiology consulted, appreciate recommendations -N.p.o. for now pending cardiology assessment. IVF. -Continuous cardiac monitoring -repeat EKG stat -Nitro sl prn chest pain -obtain lipid profile Syncopal episode Carotid ultrasound shows no hemodynamically significant stenosis CT head negative for acute intracranial process Orthostatic BP measurements negative -Await 2D echocardiogram results and EEG -Continue neurochecks -Fall and seizure precautions Nausea and vomiting -Zofran as needed Hyponatremia, suspect secondary to dehydration and alcohol abuse Mild, asymptomatic -IVF -monitor sodium level Polysubstance abuse to include alcohol and cocaine History of IV drug use Discussed importance of cessation of alcohol and illicit drug use fall and seizure precautions in place -continue on folate/thiamine and MV -monitor for EtOH withdrawal COPD, stable, not in acute exacerbation -continue to monitor respiratory status -supplemental oxygen as needed to maintain O2 sats>92% -Duonebs prn Hx of Hep C/histoplasmosis, stable -standard precautions Transaminitis, secondary to alcohol abuse and Hep C patient has no complaints of abdominal pain LFTs trending down -avoid hepatotoxic agents -trend LFTs Thrombocytopenia, suspect secondary to liver disfunction INR 1.0 -Continue to monitor white count -No evidence of active bleeding, continue to monitor Chronic pain -continue on home dose of Methadone DVT prophylaxis: Patient is on Heparin gtt Discharge Planning Not ready for discharge. Discharge pending cardiology workup and clearance. Heidi Abbasi November 23, 2017 08:45
[2017-11-23] MEDS ORDERED: SODIUM CHLOR 0.9% 1000 ML INJ 1,000 ML IV SCH (09:00)
[2017-11-23 09:21] LABS: CHOLESTEROL 234 MG/DL (120-200); MAGNESIUM 1.9 MG/DL (1.5-2.5); TRIGLYCERIDES 48 MG/DL (42-150)
[2017-11-23 09:46] LABS: CHOLESTEROL/ HDL RATIO 1.42 RATIO; HDL CHOLESTEROL 164.3 MG/DL (40.0-60.0); LDL CHOLESTEROL 60 MG/DL (0-99)
[2017-11-23 09:54] LABS: FOLATE GREATER THAN 20.0 NG/ML (3.1-17.5)
--- NOTE | 2017-11-23 09:54 | MB ---
cc: Ramiro Curran MD DATE: 11/23/2017 INDICATION: Non-ST elevation myocardial infarction. HISTORY OF PRESENT ILLNESS: This is a 52-year-old female. She has history of alcohol abuse, COPD, hepatitis C, and histoplasmosis who presents with syncopal episode. Apparently, she was getting out of bed when she passed out. She denies any prior history of syncope. She states that she has no recent symptoms of exertional angina. No prior history of known heart disease. She last drank about 3 days ago, but she does admit to drinking several beers per day. She ruled in by cardiac biomarkers for non-ST elevation myocardial infarction. We were consulted for further recommendations. No arrhythmias on telemetry. PAST MEDICAL HISTORY: COPD chronic pain, opioid dependence, tobacco dependence, histoplasmosis, hepatitis C. REPORTED MEDICATIONS: 1. Zoloft. 2. Xanax. 3. Hydroxyzine. 4. Lidocaine. 5. Methadone. ALLERGIES: NONE. FAMILY HISTORY: Denies any family history of early coronary disease or sudden cardiac . SOCIAL HISTORY: Smokes a pack a day for 40 years. Drinks 6 beers a day. REVIEW OF SYSTEMS: A 12-point review of systems was performed, negative otherwise as noted in the history of present illness. PHYSICAL EXAMINATION: VITAL SIGNS: Temperature is 98, pulse 82, blood pressure is 104/75 mmHg. GENERAL: Alert and oriented x 3, in no acute distress. HEENT: Shows pupils are reactive to light and accommodation. Extraocular movements are intact. No elevation of jugular venous distention. No thyromegaly. No lymphadenopathy. No carotid bruits. LUNGS: Clear to auscultation bilaterally. CARDIOVASCULAR: Regular without murmurs, rubs or gallops. ABDOMEN: Soft, nontender, nondistended with good bowel sounds. No hepatosplenomegaly. EXTREMITIES: Show no clubbing, cyanosis or edema. Good peripheral pulses. NEUROLOGIC: Cranial nerves intact. Motor and sensory grossly intact. LABORATORY DATA: WBC 4.9, hemoglobin 12.7, platelet count of 104. INR is 1. Sodium 133, potassium 3.5, BUN 3, creatinine 0.37. Troponin peaked at 5.79. Electrocardiogram, nonspecific T-wave abnormalities. ASSESSMENT: 1. Syncope. 2. Non-ST elevation myocardial infarction. 3. History of tobacco and alcohol abuse. 4. Hepatitis C. PLAN: It is not clear as to the etiology of her syncopal episode. It sounds somewhat more orthostatic, given her change in position associated with the getting out of bed. She does have significant elevation in troponin consistent with non-ST elevation myocardial infarction. We will get a 2-D echocardiogram, followup on a repeat electrocardiogram and she is going to need a cardiac catheterization to rule out obstructive coronary disease. We will follow telemetry for any arrhythmias. Depending on the results of the heart catheterization, she may need an outpatient event monitor. N.p.o. after midnight. Ramiro Curran MD SIMI/DL , 09:29 AM , 09:53 AM
[2017-11-23] MEDS: LORazepam 2 MG/ML VIAL IV PUSH PRN (12:30)
[2017-11-23 16:09] LABS: HEMOGLOBIN A1C 4.1 % (4.3-6.0)
--- NOTE | 2017-11-23 18:00 | ECHRPT ---
Indication: SYNCOPE CONCLUSIONS The left ventricular systolic function is severely reduced with an estimated ejection fraction less than 20%. Moderately dilated left ventricle. Wall thickness is normal. There is global left ventricular dysfunction. Aortic valve sclerosis is present. Moderate aortic valve regurgitation. There is trace tricuspid valve regurgitation. The estimated pulmonary arterial pressure is 23.7 mmHg. Trivial pulmonary valve regurgitation. BP: / HR: Rhythm: Sinus MEASUREMENTS (Male / Female) Normal Values Technical Quality:Good 2D ECHO LV Diastolic Diameter PLAX 4.7 cm 4.2 - 5.9 / 3.9 - 5.3 cm LV Systolic Diameter PLAX 4.5 cm IVS Diastolic Thickness 0.8 cm 0.6 - 1.0 / 0.6 - 0.9 cm LVPW Diastolic Thickness 0.8 cm 0.6 - 1.0 / 0.6 - 0.9 cm LV Relative Wall Thickness 0.3 RV Internal Dim ED PLAX 1.7 cm LVOT Diameter 1.9 cm LA Systolic Diameter LX 2.4 cm 3.0 - 4.0 / 2.7 - 3.8 cm LV Ejection Fraction MOD 4C 25.3 % LV Ejection Fraction 4C AL 25.6 % M-MODE Aortic Root Diameter MM 2.5 cm LA Systolic Diameter MM 2.2 cm LA Ao Ratio MM 0.9 AV Cusp Separation MM 1.5 cm DOPPLER AV Peak Velocity 115.0 cm/s AV Peak Gradient 5.3 mmHg AI Peak Velocity 459.5 cm/s AI Peak Gradient 84.5 mmHg AI Pressure Half Time 316.5 ms LVOT Peak Velocity 73.1 cm/s LVOT Peak Gradient 2.1 mmHg AV Area Cont Eq pk 1.8 cm MV Area PHT 4.1 cm Mitral E Point Velocity 69.6 cm/s Mitral A Point Velocity 98.7 cm/s Mitral E to A Ratio 0.7 LV E' Lateral Velocity 5.3 cm/s Mitral E to LV E' Lateral Ratio 13.2 LV E' Septal Velocity 3.2 cm/s Mitral E to LV E' Septal Ratio 21.6 TR Peak Velocity 185.0 cm/s TR Peak Gradient 13.7 mmHg Right Atrial Pressure 10.0 mmHg Pulmonary Artery Systolic Pressu 23.7 mmHg Right Ventricular Systolic Press 23.7 mmHg PV Peak Velocity 93.7 cm/s PV Peak Gradient 3.5 mmHg FINDINGS LEFT VENTRICLE The left ventricular systolic function is severely reduced with an estimated ejection fraction less than 20%. Moderately dilated left ventricle. Wall thickness is normal. There is global left ventricular dysfunction. RIGHT VENTRICLE Normal right ventricular size and systolic function. LEFT ATRIUM The left atrial size is normal. RIGHT ATRIUM The right atrial size is normal. ATRIAL SEPTUM Normal atrial septal thickness without atrial level shunting by limited color doppler interrogation. AORTA The aortic root and proximal ascending aorta are normal in size on limited imaging. MITRAL VALVE Structurally normal mitral valve. No mitral valve stenosis or regurgitation. AORTIC VALVE Trileaflet aortic valve. Aortic valve sclerosis is present. Moderate aortic valve regurgitation. TRICUSPID VALVE Structurally normal tricuspid valve. There is trace tricuspid valve regurgitation. The estimated pulmonary arterial pressure is 23.7 mmHg. PULMONARY VALVE Trivial pulmonary valve regurgitation. VESSELS The inferior vena cava is normal in size. PERICARDIUM No pericardial effusion. Michael Bronson MD, FACC, [facility] [place] (Electronically Signed) Final Date:23 Nov 2017 17:59
[2017-11-23] MEDS: ONDANSETRON ODT 4 MG TAB PO PRN (23:21)
[2017-11-24] VITALS (8 sets, daily range): BP systolic 80–106; BP diastolic 57–78; PULSE 80–99; RESP 16–18; TEMP 97.5–98.7; O2SAT 93–97
[2017-11-24] MEDS: LORazepam 1 MG TAB PO PRN ×2 (03:46→18:52)
[2017-11-24 04:38] LABS: AUTOMATED NEUTROPHIL # 4.1 TH/MM3 (1.8-7.7); BASOPHIL % 0.6 % (0.0-2.0); EOSINOPHIL # 0.1 TH/MM3 (0-0.4); EOSINOPHIL % 0.9 % (0.0-4.0); HEMATOCRIT 37.4 % (35.0-46.0); HEMOGLOBIN 12.8 GM/DL (11.6-15.3); LYMPH % 13.6 % (9.0-44.0); LYMPHOCYTE # 0.8 TH/MM3 (1.0-4.8); MEAN CELL VOLUME 101.9 FL (80.0-100.0); MEAN CORPUSCULAR HEMOGLOBIN 34.8 PG (27.0-34.0); MEAN CORPUSCULAR HGB CONC 34.1 % (32.0-36.0); MEAN PLATELET VOLUME 8.8 FL (7.0-11.0); MONO % 12.7 % (0.0-8.0); MONOCYTE # 0.7 TH/MM3 (0-0.9); NEUT % 72.2 % (16.0-70.0); PLATELET COUNT 151 TH/MM3 (150-450); RED BLOOD COUNT 3.67 MIL/MM3 (4.00-5.30); RED CELL DISTRIBUTION WIDTH 15.3 % (11.6-17.2); WHITE BLOOD COUNT 5.7 TH/MM3 (4.0-11.0)
[2017-11-24 05:07] LABS: ALBUMIN 3.3 GM/DL (3.4-5.0); ALKALINE PHOSPHATASE 139 U/L (45-117); ALT (GPT) 42 U/L (10-53); AST (GOT) 86 U/L (15-37); BICARBONATE 25.9 MEQ/L (21.0-32.0); BLOOD UREA NITROGEN 4 MG/DL (7-18); CALCIUM 8.7 MG/DL (8.5-10.1); CHLORIDE 86 MEQ/L (98-107); CREATININE 0.58 MG/DL (0.50-1.00); GLOMERULAR FILTRATION RATE 109 ML/MIN (>89); GLUCOSE,RANDOM 86 MG/DL (74-106); SODIUM (NA) 125 MEQ/L (136-145); TOTAL BILIRUBIN ADULT 0.6 MG/DL (0.2-1.0); TOTAL PROTEIN 7.7 GM/DL (6.4-8.2)
[2017-11-24] MEDS: FOLIC ACID 1 MG TAB PO SCH (08:18)
[2017-11-24] MEDS: THIAMINE HCL 100 MG TAB PO SCH (08:21)
[2017-11-24] MEDS: MULTIVITAMIN TAB PO SCH (08:21)
[2017-11-24] MEDS: SERTRALINE HCL 50 MG TAB PO SCH (08:21)
[2017-11-24] MEDS: SODIUM CHLORIDE 0.9% FLUSH 10 ML FLUSH IV FLUSH SCH ×2 (08:23→21:00)
[2017-11-24] MEDS: METHADONE HCL 10 MG TAB PO SCH (08:23)
--- NOTE | 2017-11-24 08:58 | PD.CARD.PN ---
Subjective Subjective Remarks Patient reports she is breathing better today. She denies any chest pain, shortness breath, palpitations, leg swelling. She reports a history of endocarditis in 2007. She denies any fevers or chills. Telemetry with some sinus tachycardia overnight, no other significant arrhythmias noted. She states she drinks 4-6 beers daily to control her nausea. ([place]) Objective Medications Current Medications Medications (Trade) Dose Ordered Sig/Marcella Route Start Time Stop Time Status Last Admin (NS Flush) 2 ml UNSCH PRN IV FLUSH 11/22/17 15:45 (NS Flush) 2 ml BID IV FLUSH 11/22/17 21:00 11/24/17 08:23 (Romazicon Inj) 0.2 mg Q1M PRN IV PUSH 11/22/17 15:45 (Ativan) 1 mg Q4H PRN PO 11/22/17 15:45 11/24/17 03:46 (Ativan Inj) 1 mg Q4H PRN IV PUSH 11/22/17 15:45 11/23/17 12:30 (Ativan) 2 mg Q2H PRN PO 11/22/17 15:45 (Ativan Inj) 2 mg Q2H PRN IV PUSH 11/22/17 15:45 (Ativan Inj) 2 mg Q1H PRN IV PUSH 11/22/17 15:45 11/22/17 16:48 (Ativan Inj) 2 mg Q15M PRN IV PUSH 11/22/17 15:45 (Vitamin B1) 100 mg DAILY PO 11/22/17 15:45 11/24/17 08:21 (Folate) 1 mg DAILY PO 11/22/17 15:45 11/24/17 08:18 (Theragran) 1 tab DAILY PO 11/22/17 15:45 11/24/17 08:21 (Dolophine) 2.5 mg DAILY PO 11/23/17 09:00 11/24/17 08:23 (Zoloft) 50 mg DAILY PO 11/23/17 09:00 11/24/17 08:21 (Catapres) 0.1 mg Q6H PRN PO 11/22/17 18:45 (Heparin Inj) 5,000 units UNSCH PRN IV PUSH 11/23/17 04:45 (Heparin Inj) 2,500 units UNSCH PRN IV PUSH 11/23/17 04:45 Heparin Sodium/ Dextrose 250 ml @ 6 mls/hr TITRATE PRN IV 11/22/17 22:45 11/23/17 02:27 Sodium Chloride 1,000 ml @ 84 mls/hr [id number] IV 11/23/17 09:00 Future Hold 11/23/17 09:15 (Nitrostat Sl) 0.4 mg Q5M PRN SL 11/23/17 08:30 (Zofran Odt) 4 mg Q6H PRN PO 11/23/17 23:15 11/23/17 23:21 Vital Signs / I&O Vital Signs Date Time Temp Pulse Resp B/P (MAP) Pulse Ox O2 Delivery O2 Flow Rate FiO2 11/24/17 07:28 98.7 99 18 106/68 (81) 96 101/64 (76) 80/58 (65) 11/24/17 04:33 98.2 87 17 92/57 (69) 93 11/24/17 04:00 92 11/24/17 00:00 93 11/23/17 23:26 98.5 90 17 117/78 (91) 94 11/23/17 20:14 98.5 95 17 112/72 (85) 94 11/23/17 15:58 98.3 97 19 128/75 (92) 97 11/23/17 15:00 82 11/23/17 11:52 98.5 90 19 110/79 (89) 97 I/O 11/23/17 11/23/17 11/23/17 11/24/17 11/24/17 11/24/17 07:00 15:00 23:00 07:00 15:00 23:00 Intake Total 750 ml Balance 750 ml Intake Oral 750 ml # Voids 1 3 Physical Exam GENERAL: Well-developed well-nourished. In no acute distress. NECK: No carotid bruits. No JVD. CARDIOVASCULAR: Regular rate and rhythm. No murmur appreciated. RESPIRATORY: No accessory muscle use. Clear to auscultation. Breath sounds equal bilaterally. MUSCULOSKELETAL: No clubbing or cyanosis. No edema. NEUROLOGICAL: Awake and alert. Normal speech. Mildly tremulous. Laboratory Laboratory Tests Test 11/23/17 16:01 11/23/17 23:05 11/24/17 04:12 Activated Partial Thromboplast Time 35.4 SEC 49.2 SEC 46.1 SEC Total Creatine Kinase 559 U/L Creatine Kinase MB 5.5 NG/ML Creatine Kinase MB % 1.0 % White Blood Count 5.7 TH/MM3 Red Blood Count 3.67 MIL/MM3 Hemoglobin 12.8 GM/DL Hematocrit 37.4 % Mean Corpuscular Volume 101.9 FL Mean Corpuscular Hemoglobin 34.8 PG Mean Corpuscular Hemoglobin Concent 34.1 % Red Cell Distribution Width 15.3 % Platelet Count 151 TH/MM3 Mean Platelet Volume 8.8 FL Neutrophils (%) (Auto) 72.2 % Lymphocytes (%) (Auto) 13.6 % Monocytes (%) (Auto) 12.7 % Eosinophils (%) (Auto) 0.9 % Basophils (%) (Auto) 0.6 % Neutrophils # (Auto) 4.1 TH/MM3 Lymphocytes # (Auto) 0.8 TH/MM3 Monocytes # (Auto) 0.7 TH/MM3 Eosinophils # (Auto) 0.1 TH/MM3 Basophils # (Auto) 0.0 TH/MM3 CBC Comment DIFF FINAL Differential Comment Blood Urea Nitrogen 4 MG/DL Creatinine 0.58 MG/DL Random Glucose 86 MG/DL Total Protein 7.7 GM/DL Albumin 3.3 GM/DL Calcium Level 8.7 MG/DL Alkaline Phosphatase 139 U/L Aspartate Amino Transf (AST/SGOT) 86 U/L Alanine Aminotransferase (ALT/SGPT) 42 U/L Total Bilirubin 0.6 MG/DL Sodium Level 125 MEQ/L Potassium Level 3.6 MEQ/L Chloride Level 86 MEQ/L Carbon Dioxide Level 25.9 MEQ/L Anion Gap 13 MEQ/L Estimat Glomerular Filtration Rate 109 ML/MIN Imaging Last Impressions Head CT 11/22/17 1232 Signed Impressions: CONCLUSION: 1. Negative CT Head non contrast. Chest X-Ray 11/22/17 1232 Signed Impressions: CONCLUSION: No acute intrathoracic disease. No significant change compared to the prior naresh dy. Carotid Artery Ultrasound 11/22/17 0000 Signed Impressions: CONCLUSION: 1. Right Internal Carotid Artery: No significant plaque or hemodynamically sig nificant stenosis. 2. Left Internal Carotid Artery: No significant plaque or hemodynamically sign ificant stenosis. 3. Antegrade flow both vertebral arteries. ([place]) Assessment and Plan Assessment and Plan 52-year-old female with a past medical history of alcohol abuse, endocarditis, hepatitis C, COPD, histoplasmosis who presented after syncopal episode NSTEMI: With troponin elevation and new onset cardiomyopathy, plan is for cardiac catheterization today to rule out any obstructive coronary disease. Syncopal episode: Unclear etiology, but sounded orthostatic. The patient did have positive orthostatic vital signs today with systolic blood pressure dropping from 106 supine to 80 standing. Cardiomyopathy: Echo showed EF less than 20% with global left ventricular dysfunction, moderately dilated left ventricle, moderate AR. With significant orthostatic BP, likely will not tolerate ACEi/ARB/BB at this time. Will likely need LifeVest at discharge. Alcohol abuse: Possibly contributing to cardiomyopathy. Patient counseled regarding excessive alcohol use. ([place] Dup[place]) Assessment and Plan LHC - normal coronaries. CM - nonischemic syncope - possible orthostatic vs arrhythmia lifevest on DC medical mgt DC ETOH (alcoholic cardiomyopathy) FU PCP/Medicaid clinic unable to tolerate ACEi/ARB/diuretic/entresto due to BP (Ramiro Curran MD) [place] November 24, 2017 08:58 Ramiro Curran MD November 24, 2017 11:38
--- NOTE | 2017-11-24 10:59 | HHI.PR ---
Subjective Remarks Follow-up NSTEMI, syncopal episode. Patient is going for cardiac catheterization this morning. She denies chest pain currently. Does report mild shortness of breath. Objective Vitals Vital Signs Date Time Temp Pulse Resp B/P (MAP) Pulse Ox O2 Delivery O2 Flow Rate FiO2 11/24/17 07:28 98.7 99 18 106/68 (81) 96 101/64 (76) 80/58 (65) 11/24/17 04:33 98.2 87 17 92/57 (69) 93 11/24/17 04:00 92 11/24/17 00:00 93 11/23/17 23:26 98.5 90 17 117/78 (91) 94 11/23/17 20:14 98.5 95 17 112/72 (85) 94 11/23/17 15:58 98.3 97 19 128/75 (92) 97 11/23/17 15:00 82 11/23/17 11:52 98.5 90 19 110/79 (89) 97 I/O 11/23/17 11/23/17 11/23/17 11/24/17 11/24/17 11/24/17 07:00 15:00 23:00 07:00 15:00 23:00 Intake Total 750 ml Balance 750 ml Intake Oral 750 ml # Voids 1 3 Result Diagram: 11/24/17 0412 11/24/17 0412 Imaging Last Impressions Head CT 11/22/17 1232 Signed Impressions: CONCLUSION: 1. Negative CT Head non contrast. Chest X-Ray 11/22/17 1232 Signed Impressions: CONCLUSION: No acute intrathoracic disease. No significant change compared to the prior naresh dy. Carotid Artery Ultrasound 11/22/17 0000 Signed Impressions: CONCLUSION: 1. Right Internal Carotid Artery: No significant plaque or hemodynamically sig nificant stenosis. 2. Left Internal Carotid Artery: No significant plaque or hemodynamically sign ificant stenosis. 3. Antegrade flow both vertebral arteries. Objective Remarks General: No acute distress. Heart: Regular rate and rhythm. No murmur. Lungs: Clear to auscultation bilaterally. No wheezes, rales, or rhonchi. Breathing is nonlabored. Abdomen: Soft, nontender, nondistended. Extremities: No lower extremity edema. Psych: Alert and oriented. Neuro: Normal speech. No focal deficits noted. Procedures None Urinary Catheter: No Vascular Central Line Catheter: No A/P Assessment and Plan 1. NSTEMI: Troponins increased. Appreciate cardiology recommendations. Going for cardiac catheterization now. Sublingual nitroglycerin as needed. On heparin drip. 2. Syncopal episode: Carotid artery ultrasound is negative. CT head is negative. Orthostatic vital signs are negative. 2D echocardiogram ordered. Continue neuro checks. 3. Hyponatremia: Likely secondary to dehydration, alcohol abuse. Asymptomatic. Monitor labs. Continue IV fluids. 4. Polysubstance, alcohol abuse: Patient has history of IV drug abuse. Recent cocaine use. She has been counseled. Continue folate, thiamine, multivitamin. Monitor for withdrawal symptoms. 5. COPD: Stable, not in acute exacerbation. Oxygen as needed. Duo nebs as needed. 6. Transaminitis: Likely secondary to alcohol abuse, hepatitis C. LFTs are trending down. Avoid hepatotoxic agents. 7. Thrombocytopenia: Likely secondary to liver dysfunction. No evidence of active bleeding. 8. Continue chronic methadone dose. Contacted [facility] and verified that patient takes 150mg daily. 9. DVT prophylaxis: Heparin drip. Darci Angela MD November 24, 2017 10:59
[2017-11-24] MEDS ORDERED: HEPARIN SODIUM - IV 10,000 UNITS/10 ML VIAL ONE (11:00)
[2017-11-24] MEDS ORDERED: HEPARIN-NS/PF INJ 1,000 ML ONE (11:00)
[2017-11-24] MEDS ORDERED: NITROGLYCERIN INJ 5 ML ONE (11:02)
[2017-11-24] MEDS ORDERED: MIDAZOLAM HCL 2 MG/2 ML VIAL ONE (11:03)
[2017-11-24] MEDS ORDERED: DEFIB EXTERNAL (11:40)
[2017-11-24] MEDS ORDERED: MISC INFORMATION XX ONE (11:45)
--- NOTE | 2017-11-24 11:49 | CATHPROC ---
[employer] HIS Report Study Information Study Number Scheduled Start Study Start [id number] 11/24/2017 Nov 24 2017 10:34AM Referring Institution Admit Source Facility Department 1 Emergency department [facility] - Mail Handler Physician and Clinical Staff Initial Ramiro Bang Couturiere Se Russell,RN Recorder Alexandrea Shah ,RT(R) Scrub Myra San,RT(R) Procedures Performed Procedure Location (Site) Vessel Name Coronary Angiograms LCA Left Coronary Coronary Angiograms RCA Right Coronary L Heart Cath Wire insertion Radial (right) Radial Art. Equipment Time Nibbler Operator Description Size Mfg Part Number Used/Scraped TRANSDUCER, TRUWAVE [id number] 10:37 KRUEGER GRANGER * Used W/STOCKCOCK *[id number] *[id number] 10:37 [employer] PACK, CCL CUSTOM * Used *[id number] 10:37 [employer] SUPPORT, ARTERIAL ADULT [id number] *[id number] Used [id number] 10:37 [employer] PACER PEN, SKIN DUAL W/ RULER * Used *[id number] 11:25 MEDTRONIC JR 5.0 DXTERITY CATHETER fr 5 [id number] Used BAND, RADIAL COMPRESSION TR [id number] 11:31 [employer] MEDICAL 24CM Used SHORT 24 *[id number] SHEATH, FR6 RADIAL PRELUDE 10:37 [employer] FR 6 [id number] Used EASE 11CM [id number] 10:37 [employer] WIRE, EXCHANGE 260CM 3MMJ 260CM Used *[id number] 10:37 NAMIC MANIFOLD, 4 PORT * Used *[id number] 10:37 NYCOMED OMNIPAQUE, 350 MG, 150ML 150ML [id number] Used [id number] 10:37 HAR[employer] BLANKET,WARM AIR CCL * Used *[id number] SHEATH, FR6 TRANSRADIAL [id number] 11:24 [employer] FR 6 Used SLENDER 10CM *[id number] History: Allergies Allergy Reaction *MDRO Multi-Drug Resistant Organism History: Risk Factors Family History of Hypertension Dyslipidemia Previous WI Previous Heart Failure Premature CAD No No Yes No No Prior Valve Prior PCI Prior CABG Surgery No No No Cerebrovascular Peripheral Artery Chronic Lung On Dialysis Diabetes Disease Disease Disease No No Yes Yes No History: Other Current Smoker Method Packs a Day Years Used Pack Years Yes Cigarettes 1 20 20 Labs Hgb (g/dl) Hct (%) WBC (l/cumm) Platelets (thousands) 11.60-17.00 35.00-51.00 4.00-11.00 150.00-450.00 12.8 37.4 5.7 157 Glucose (mg/dl) BUN (mg/dl) Creatinine (mg/dl) BUN:Creatinine (1:x) 74.00-106.00 7.00-18.00 0.50-1.30 10.00-20.00 86 4 0.5 8 Na (meq/l) K (meq/l) 136.00-145.00 3.50-5.10 125 3.6 INR (PTT:PT) 0.90-1.10 1.1 Troponin I (ng/ml) CPK-MB (ng/ML) 0.02-0.05 0.50-3.60 2.9 Not Drawn Medication Medication Total Dose (Bolus/Oral) Medication Total Dosage/Unit 1% XYLOCAINE 5 mL FENTANYL 25 mcg HEPARIN 3000 units VERSED 2 mg Medications (Bolus/Oral) Medication Time Given Dosage/Unit Administered By Reason VERSED 11/24/2017 11:16:28 AM 2 mg Se Russell 2 mg VERSED given in lab by Se Russell RN in Right Forearm via Peripheral IV. Ordered by St nanette Curran. FENTANYL 11/24/2017 11:17:29 AM 25 mcg Se Russell 25 mcg FENTANYL given in lab by Se Russell RN in Right Forearm via Peripheral IV. Ordered by Ramiro Curran. 1% XYLOCAINE 11/24/2017 11:22:28 AM 5 mL Ramiro Curran 5 mL 1% XYLOCAINE given in lab by Ramiro Curran in Right Radial via Subcutaneous. Ordered by Ramiro Curran. HEPARIN 11/24/2017 11:23:04 AM 3000 units Se Russell 3000 units HEPARIN given in lab by Se Russell RN in Right Forearm via Peripheral IV. Ordered by Ramiro Alejandre. Medication (Drip) Medication Time Given Dosage/Unit Concentration/Unit Diluent (ml) Solution IV Solutions 11/24/2017 11:13:42 AM 50 mL (IV) NaCl .9 Patient arrived on IV Solutions in Right Forearm via Peripheral IV. Pump/Drip Flow using NaCl .9. Initial Case Assessment Cardiovascular HR Rhythm NIBP Chest Pain 83 sr 107/74 0 Edema Present Skin color Skin None Normal Warm Dry Circulatory - Right Pulses Dorsalis Pedis Femoral Radial 2 2 2 Scale (0,1,2,3,4,d) Circulatory - Left Pulses Dorsalis Pedis Femoral Radial 2 2 Scale (0,1,2,3,4,d) Circulatory - Lower Extremities Color Lower Right Color Lower Left Normal Normal Neurological State Oriented to time-place- Alert Moves all extremities person Respiration - General Respiration Rate SpO2 (%) (B/min) 9 95 Final Case Assessment Cardiovascular HR Rhythm NIBP Chest Pain 83 sr 107/74 0 Edema Present Skin color Skin None Normal Warm Dry Circulatory - Right Pulses Dorsalis Pedis Femoral Radial 2 2 2 Scale (0,1,2,3,4,d) Circulatory - Left Pulses Dorsalis Pedis Femoral Radial 2 2 Scale (0,1,2,3,4,d) Circulatory - Lower Extremities Color Lower Right Color Lower Left Normal Normal Neurological State Oriented to time-place- Alert Moves all extremities person Respiration - General Respiration Rate SpO2 (%) (B/min) 9 95 Chronological Log Time Study Chronological Log 10:52:00 Patient arrived via Bed. 10:52:11 Patient Name, D.O.B, / Armband Verified By R.N. Vitals capture started with the following parameters, Patient=Adult, Interval=5 min, Initial Pr flgslg=724 mmHg, 10:59:32 Deflation Rate=5 mmHg, Cuff placed on Right Arm 11:00:00 HR=74 bpm, SKPC=842/69 mmhg, Resp=8 B/min, Pain=0, Nini=10, Paulson=2 11:04:59 HR=76 bpm, NIBP=99/75 mmhg, SpO2=96.0 %, Resp=7 B/min, Pain=0, Nini=10, Paulson=2 11:10:01 HR=76 bpm, FABD=830/75 mmhg, SpO2=96.0 %, Resp=16 B/min, Pain=0, Nini=10, Paulson=2 11:11:28 Consent signed by the physician and the patient and verified by the Mail Handler staff. 11:13:27 Pre-op and post- op instructions given; patient acknowledges understanding of instructions. 11:13:29 Verbal Stimulation=2 Physical Stimulation=2 Airway=2 Respiration=2 TOTAL=8. (0=absent, 1=li mited, 2=present) 11:13:31 Allens test performed on the right radial and ulnar artery. 11:13:33 Patient has been NPO for More than 6Hrs. 11:13:34 Skin Breakdown- none per patient 11:13:35 Patient Warmer Placed on the Table. 11:13:40 Nilsa Prominences Protected 11:13:41 A # 20 IV was noted in the Forearm (right). Grade = 0 11:13:42 Patient arrived on IV Solutions in Right Forearm via Peripheral IV. Pump/Drip Flow using Na Cl .9. 11:13:43 History and physical on the chart or being dictated. Assessment: Initial Case, HR=83 BPM, Rhythm=sr, EZFC=245/74 mmhg, Chest Pain=0, Edema=None, Col or=Normal, Skin = Warm, Dry Right Pulses: James Ped=2, Femoral=2, Radial=2 Left Pulses: James Ped=2, Femoral=2 11:13:43 Lower Right Extremities: Color=Normal Lower Left Extremities: Color=Normal Neurological: State=Alert, Ox3, NOVAK Respiration: Resp=9 B/min, SpO2=95 % 11:15:02 HR=77 bpm, AXFQ=010/74 mmhg, SpO2=97.0 %, Resp=7 B/min, Pain=0, Nini=10, Paulson=2 11:15:10 MD arrived. 11:16:28 2 mg VERSED given in lab by Se Russell RN in Right Forearm via Peripheral IV. Ordered by Ramiro Curran. 11:17:29 25 mcg FENTANYL given in lab by Se Russell RN in Right Forearm via Peripheral IV. Ordere d by Ramiro Curran. 11:18:32 Right Radial and Right groin prepped with 2% chlorhexidine, and draped after a 3 min. waiti ng time. Time Out. Correct patient, correct procedure, correct physician, labs, allergies, and equipment verified with laborer [employer] 11:19:00 team present. Fire risk assesment completed (see hard stop sheet for coding). Time Out Conc urred by MD and individual staff in procedure. 11:20:01 HR=77 bpm, WBKP=671/76 mmhg, SpO2=90.0 %, Resp=10 B/min 11:20:31 Case Start 11::43 Pressure channel 1 zeroed. : Reference ECG taken ::28 5 mL 1% XYLOCAINE given in lab by Ramiro Curran in Right Radial via Subcutaneous. Ordered by Ramiro Curran. 11:23:04 3000 units HEPARIN given in lab by Se Russell, RN in Right Forearm via Peripheral IV. Ord ered by Ramiro Curran. : Access site was right Radial Artery. 11::32 A wire was inserted via Radial (right). A SHEATH, FR6 TRANSRADIAL SLENDER 10CM FR 6 was advanced into the Radial (right) using the Perc utaneous 11::39 technique. 11:25:04 HR=87 bpm, ZMIX=295/76 mmhg, SpO2=97.0 %, Resp=8 B/min, Pain=0, Nini=10, Paulson=2 A JR 5.0 DXTERITY CATHETER fr 5 was advanced over a wire. OMNIPAQUE, 350 MG, 150ML 150ML was us ed for 11:25:27 injections. Recorded Pressure: LV, HR=80, Condition=Condition 1 11:25:48 (Left Ventricle) LV 106/2/15 Recorded Pressure: LV, Ao, HR=80, Condition=Condition 1 11:25:57 (Left Ventricle) LV 107/3/16, (Aorta) Ao 108/70/86 11:26:35 The RCA was injected and visualized at various angles. OMNIPAQUE, 350 MG, 150ML 150ML used . After removing the current catheter a JL 3.5 INFINITI CATHETER FR 5 was advanced over a WIRE, E XCHANGE 260CM 11:27:14 3MMJ 260CM. 11:27:59 The LCA was injected and visualized at various angles. OMNIPAQUE, 350 MG, 150ML 150ML used . 11:30:03 HR=83 bpm, RSHV=985/68 mmhg, SpO2=96.0 %, Resp=10 B/min, Pain=0, Nini=10, Paulson=2 11:30:12 Case End Assessment: Final Case, HR=83 BPM, Rhythm=sr, ICGE=572/74 mmhg, Chest Pain=0, Edema=None, Color =Normal, Skin = Warm, Dry Right Pulses: James Ped=2, Femoral=2, Radial=2 Left Pulses: James Ped=2, Femoral=2 11:31:42 Lower Right Extremities: Color=Normal Lower Left Extremities: Color=Normal Neurological: State=Alert, Ox3, NOVAK Respiration: Resp=9 B/min, SpO2=95 % 11:31:46 Catheter(s) removed without difficulty Radial Compression Device Used. 12 mLs of air placed in BAND, RADIAL COMPRESSION TR SHORT 24 2 4CM. Affected 11:31:51 hand 97 % O2 saturation. 11:31:54 No case complications noted. 11:31:57 Cine recording checked. 11:31:58 Bedside Report will be given. 11:32:03 A Left Heart Cath was performed. 11:35:04 HR=86 bpm, DNOE=683/72 mmhg, SpO2=95.0 %, Resp=10 B/min 11:40:07 HR=77 bpm, GYRB=589/68 mmhg, SpO2=96.0 %, Resp=11 B/min, Pain=0, Nini=10, Paulson=2 11:40:21 Patient moved to stretcher 11:45:12 Vitals capture stopped. End Study - Contrast Media Used In Study Contrast Total Opened (mL) Total Used (mL) Total Wasted (mL) Omnipaque 20 20 0 End Study - Maximum Contrast Load Max Contrast Load (mL) 480.0 End Study - Radiation Exposure Fluoro Time (minutes) 0.9 End Study - Sheaths Sheaths Pulled By Sheath Hold Time (min) Myra San End Study - Patient Disposition Complications Transferred To Interventional Outcome No Telemetry Bed No attempt made
--- NOTE | 2017-11-24 13:29 | EKG ---
Date Performed: 11/23/2017 Time Performed: 09:04:16 PTAGE: 52 years EKG: Sinus rhythm NORMAL ECG PREVIOUS TRACING : 11/22/[address]-T wave changes are noted along with progress ion of the R-wave in V3 and V4, possibly lead placement. Clinical correlation is recommended. DOCTOR: Ceasar Castaneda Interpretating Date/Time 11/24/2017 13:27:52
[2017-11-24] MEDS ORDERED: IOHEXOL 350 MG/ML 50 ML BTL (for Cath Lab) OTHER ONE (13:38)
--- NOTE | 2017-11-24 14:10 | MG ---
cc: Avis Quintero MD EEG NUMBER [id number]. REFERRING PHYSICIAN: Dr. Ni. INDICATION: Room G8 with photic stimulation, awake, drowsy asleep study. CT negative. Admitted with dizziness, syncope, shaky for a few days with some nausea, passed out. A 52-year-old woman with history of arthritis, asthma, bipolar disease, ETOH and tobacco abuse, currently on Compazine, Librium, thiamine, folic acid and vitamins. DESCRIPTION OF RECORD: The patient has some mild slowing predominant theta frequency of 6 Hz with excessive movement throughout. EKG does look sinus. Frontal eye field artifact throughout the recording notable, symmetrical, mild slowing. Hyperventilation was not done. Photic stimulation shows a mild driving response. IMPRESSION: There may be some mild slowing noted; however, not optimal EEG, but no epileptiform features. Slowing may be due to sedation medicine effect or mild encephalopathy. Clinical correlation. Avis Quintero MD DF/TL , 01:56 PM , 02:09 PM
[2017-11-24] MEDS: NS + KCL 20 MEQ INJ 1,000 ML IV SCH (17:43)
[2017-11-24] MEDS ORDERED: METHADONE HCL 10 MG TAB PO SCH (21:00)
[2017-11-25 04:27] VITALS: BP 93/64; PULSE 82; RESP 16; TEMP 98.5; O2SAT 94
[2017-11-25 07:09] LABS: BASOPHIL % 0.4 % (0.0-2.0); EOSINOPHIL # 0.1 TH/MM3 (0-0.4); EOSINOPHIL % 2.6 % (0.0-4.0); HEMOGLOBIN 11.7 GM/DL (11.6-15.3); LYMPH % 13.6 % (9.0-44.0); LYMPHOCYTE # 0.6 TH/MM3 (1.0-4.8); MEAN CORPUSCULAR HEMOGLOBIN 35.8 PG (27.0-34.0); MEAN CORPUSCULAR HGB CONC 34.4 % (32.0-36.0); MEAN PLATELET VOLUME 9.8 FL (7.0-11.0); MONO % 12.7 % (0.0-8.0); MONOCYTE # 0.5 TH/MM3 (0-0.9); NEUT % 70.7 % (16.0-70.0); PLATELET COUNT 135 TH/MM3 (150-450); RED BLOOD COUNT 3.26 MIL/MM3 (4.00-5.30); RED CELL DISTRIBUTION WIDTH 14.9 % (11.6-17.2); WHITE BLOOD COUNT 4.2 TH/MM3 (4.0-11.0)
[2017-11-25] MEDS: NS + KCL 20 MEQ INJ 1,000 ML IV SCH ×2 (07:18→20:30)
[2017-11-25] MEDS: SODIUM CHLORIDE 0.9% FLUSH 10 ML FLUSH IV FLUSH SCH ×2 (07:24→21:00)
[2017-11-25 07:40] LABS: BICARBONATE 26.1 MEQ/L (21.0-32.0); CALCIUM 8.6 MG/DL (8.5-10.1); CREATININE 0.63 MG/DL (0.50-1.00)
[2017-11-25 08:06] VITALS: BP 83/62; PULSE 75; RESP 17; TEMP 98; O2SAT 91
[2017-11-25] MEDS: THIAMINE HCL 100 MG TAB PO SCH (08:18)
[2017-11-25] MEDS: MULTIVITAMIN TAB PO SCH (08:18)
[2017-11-25] MEDS: FOLIC ACID 1 MG TAB PO SCH (08:18)
[2017-11-25] MEDS: SERTRALINE HCL 50 MG TAB PO SCH (08:18)
[2017-11-25] MEDS ORDERED: PNEUMOCOCCAL POLYVALENT INJ 25 MCG/0.5 ML SYR IM ONE (10:00)
[2017-11-25] MEDS ORDERED: SODIUM CHLOR 0.9% 1000 ML INJ 1,000 ML IV ONE (10:30)
--- NOTE | 2017-11-25 11:41 | HHI.PR ---
Subjective Remarks Patient says he feels all right. Denies any chest pain or shortness of breath currently. Still feels very weak. Objective Vital Signs Date Time Temp Pulse Resp B/P (MAP) Pulse Ox O2 Delivery O2 Flow Rate FiO2 11/25/17 08:06 98.0 75 17 83/62 (69) 91 11/25/17 08:00 Room Air 11/25/17 04:27 98.5 82 16 93/64 (74) 94 11/25/17 04:00 Room Air 11/25/17 00:00 Room Air 11/24/17 23:28 97.6 88 16 92/67 (75) 93 11/24/17 20:15 97.7 80 16 101/71 (81) 94 11/24/17 20:00 Room Air 11/24/17 17:17 97.5 89 16 106/78 (87) 97 11/24/17 11:47 97 Room Air I/O 11/24/17 11/24/17 11/24/17 11/25/17 11/25/17 11/25/17 07:00 15:00 23:00 07:00 15:00 23:00 Intake Total 700 ml Output Total 300 ml Balance 400 ml Intake Oral 700 ml Output Urine Total 300 ml # Voids 4 # Bowel Movements 0 Result Diagram: 11/25/17 0640 11/25/17 0640 Objective Remarks GENERAL: Patient sitting up in bed. Appears comfortable. Alert and oriented 3. Ataxia on exam. Mild. SKIN: Warm and dry. HEAD: Normocephalic. EYES: No scleral icterus. No injection or drainage. NECK: Supple, trachea midline. No JVD. CARDIOVASCULAR: Regular rate and rhythm without murmurs, gallops, or rubs. RESPIRATORY: Breath sounds equal bilaterally. No accessory muscle use. GASTROINTESTINAL: Abdomen soft, non-tender, nondistended. MUSCULOSKELETAL: No cyanosis, or edema. BACK: Nontender without obvious deformity. No CVA tenderness. A/P Assessment and Plan // NSTEMI: Troponins increased. = Nonischemic cardiomyopathy. Negative cath for CAD. Cardiology following. Appreciate assistance. Will need LifeVest. //Nonischemic cardiomyopathy //Syncopal episode //Moderate aortic regurgitation. = carotid artery ultrasound is negative. CT head is negative. Orthostatic vital signs are negative. = 2D echo less than 20% ejection fraction. Will need LifeVest. = Blood pressure low currently, however if elevated will need afterload reduction. Appreciate cardiology assistance. ///Hyponatremia: Likely secondary to dehydration, alcohol abuse. = Still with sodium 124. BNP pending. //Hypotension. Systolic blood pressures in the 80s this morning. Fluid bolus. Check BNP. Decrease dose of methadone. //Polysubstance, alcohol abuse: Patient has history of IV drug abuse. Recent cocaine use. She has been counseled. Continue folate, thiamine, multivitamin. Monitor for withdrawal symptoms. = 20 CIWA protocol for what appears to be obvious alcohol withdrawal. Decrease dose of methadone secondary to hypotension //COPD: Stable, not in acute exacerbation. Oxygen as needed. Duo nebs as needed. //Transaminitis: Likely secondary to alcohol abuse, hepatitis C. LFTs are trending down. Avoid hepatotoxic agents.. Follow-up labs. //Thrombocytopenia: Likely secondary to liver dysfunction. No evidence of active bleeding. //Continue chronic methadone dose. Contacted [facility] and verified that patient takes 150mg daily. = Decrease dose of methadone secondary to hypotension. //DVT prophylaxis: Heparin drip. Discharge Planning Still with alcohol withdrawal We will need cardiology clearance. We will need LifeVest. Po Giordano MD November 25, 2017 11:41
[2017-11-25 11:53] LABS: ALBUMIN 2.8 GM/DL (3.4-5.0); DIRECT BILIRUBIN ADULT 0.3 MG/DL (0.0-0.2)
[2017-11-25 12:03] LABS: FREE T4 0.67 NG/DL (0.76-1.46); INDIRECT BILIRUBIN 0.4 MG/DL (0.0-0.8); TOTAL BILIRUBIN ADULT 0.7 MG/DL (0.2-1.0); TOTAL PROTEIN 6.6 GM/DL (6.4-8.2)
[2017-11-25 12:06] VITALS: BP 98/77; PULSE 79; RESP 17; TEMP 98.1; O2SAT 95
[2017-11-25] MEDS ORDERED: THIAMINE HCL 100 MG TAB PO ONE (13:00)
[2017-11-25 16:06] VITALS: BP 98/77; PULSE 81; RESP 17; TEMP 98.1; O2SAT 95
[2017-11-25] MEDS: LORazepam 1 MG TAB PO PRN (16:27)
[2017-11-25 20:00] VITALS: BP 104/66; PULSE 84; RESP 18; TEMP 98.5; O2SAT 95
[2017-11-25] MEDS ORDERED: METHADONE HCL 10 MG TAB PO SCH (21:00)
[2017-11-26] VITALS (7 sets, daily range): BP systolic 98–112; BP diastolic 59–69; PULSE 74–86; RESP 16–18; TEMP 98–98.4; O2SAT 94–97
[2017-11-26] MEDS: LORazepam 1 MG TAB PO PRN
[2017-11-26 05:08] LABS: BASOPHIL % 0.5 % (0.0-2.0); EOSINOPHIL # 0.1 TH/MM3 (0-0.4); EOSINOPHIL % 3.2 % (0.0-4.0); HEMATOCRIT 29.1 % (35.0-46.0); HEMOGLOBIN 10.1 GM/DL (11.6-15.3); LYMPHOCYTE # 0.5 TH/MM3 (1.0-4.8); MEAN CELL VOLUME 103.4 FL (80.0-100.0); MEAN CORPUSCULAR HEMOGLOBIN 35.9 PG (27.0-34.0); MEAN CORPUSCULAR HGB CONC 34.7 % (32.0-36.0); MEAN PLATELET VOLUME 8.8 FL (7.0-11.0); MONO % 15.4 % (0.0-8.0); MONOCYTE # 0.5 TH/MM3 (0-0.9); NEUT % 63.9 % (16.0-70.0); PLATELET COUNT 155 TH/MM3 (150-450); RED BLOOD COUNT 2.82 MIL/MM3 (4.00-5.30); WHITE BLOOD COUNT 3.1 TH/MM3 (4.0-11.0)
[2017-11-26 05:37] LABS: ALBUMIN 2.5 GM/DL (3.4-5.0); BICARBONATE 23.9 MEQ/L (21.0-32.0); CREATININE 0.49 MG/DL (0.50-1.00); MAGNESIUM 1.7 MG/DL (1.5-2.5); PHOSPHORUS 4.1 MG/DL (2.5-4.9)
[2017-11-26] MEDS: MULTIVITAMIN TAB PO SCH (10:28)
[2017-11-26] MEDS: METHADONE HCL 10 MG TAB PO SCH (10:28)
[2017-11-26] MEDS: SODIUM CHLORIDE 0.9% FLUSH 10 ML FLUSH IV FLUSH SCH ×2 (10:29→21:54)
[2017-11-26] MEDS: SODIUM CHLOR 0.45% 1000 ML INJ 1,000 ML IV SCH ×2 (10:29→21:54)
[2017-11-26] MEDS: FOLIC ACID 1 MG TAB PO SCH (10:29)
[2017-11-26] MEDS: SERTRALINE HCL 50 MG TAB PO SCH (10:29)
[2017-11-26] MEDS: THIAMINE HCL 100 MG TAB PO SCH (10:29)
--- NOTE | 2017-11-26 16:10 | HHI.PR ---
Subjective Remarks Patient walking in room. Says she feels all right. Denies any chest pain shortness of breath. Denies nausea vomiting. Objective Vital Signs Date Time Temp Pulse Resp B/P (MAP) Pulse Ox O2 Delivery O2 Flow Rate FiO2 11/26/17 08:06 98.4 77 17 102/63 (76) 95 11/26/17 08:00 Room Air 11/26/17 04:00 98.3 78 18 98/61 (73) 95 11/26/17 00:00 98.0 84 18 104/66 (79) 94 11/26/17 00:00 Room Air 11/25/17 20:00 Room Air 11/25/17 20:00 98.5 84 18 104/66 (79) 95 11/25/17 16:06 98.1 81 17 98/77 (84) 95 I/O 11/25/17 11/25/17 11/25/17 11/26/17 11/26/17 11/26/17 06:59 14:59 22:59 06:59 14:59 22:59 Intake Total 700 ml 420 ml 480 ml Output Total 300 ml 900 ml 500 ml Balance 400 ml -480 ml -20 ml Intake Oral 700 ml 420 ml 480 ml Output Urine Total 300 ml 900 ml 500 ml # Bowel Movements 0 1 0 Result Diagram: 11/26/1743411/26/17434 Objective Remarks GENERAL: Patient walking in room.. Appears comfortable. Alert and oriented 3. Ataxia on exam, slightly better than yesterday. SKIN: Warm and dry. HEAD: Normocephalic. EYES: No scleral icterus. No injection or drainage. NECK: Supple, trachea midline. No JVD. CARDIOVASCULAR: Regular rate and rhythm without murmurs, gallops, or rubs. RESPIRATORY: Breath sounds equal bilaterally. No accessory muscle use. GASTROINTESTINAL: Abdomen soft, non-tender, nondistended. MUSCULOSKELETAL: No cyanosis, or edema. BACK: Nontender without obvious deformity. No CVA tenderness. A/P Assessment and Plan // NSTEMI: Troponins increased. = Nonischemic cardiomyopathy. Negative cath for CAD. Cardiology following. Appreciate assistance. Will need LifeVest. //Nonischemic cardiomyopathy //Syncopal episode //Moderate aortic regurgitation. = carotid artery ultrasound is negative. CT head is negative. Orthostatic vital signs are negative. = 2D echo less than 20% ejection fraction. Will need LifeVest. = Blood pressure low currently, however if elevated will need afterload reduction. Appreciate cardiology assistance. = Blood pressure acceptable. Awaiting LifeVest. ///Hyponatremia: Likely secondary to dehydration, alcohol abuse. = Still with sodium 124. BNP pending. =-Sodium 134. Improved. Switch to one half normal saline. //Hypotension. Systolic blood pressures in the 80s this morning. Fluid bolus. Decrease dose of methadone. Improved on decreased dose of methadone. //Polysubstance, alcohol abuse: Patient has history of IV drug abuse. Recent cocaine use. She has been counseled. Continue folate, thiamine, multivitamin. Monitor for withdrawal symptoms. = Continue CIWA protocol for what appears to be obvious alcohol withdrawal. Decrease dose of methadone secondary to hypotension = Improving. Patient has been counseled. //Hypothyroidism. = With low TSH, low T3, T4. Will start levothyroxine. Follow-up with primary care. //COPD: Stable, not in acute exacerbation. Oxygen as needed. Duo nebs as needed. //Transaminitis: Likely secondary to alcohol abuse, hepatitis C. LFTs are trending down. Avoid hepatotoxic agents.. Follow-up labs. //Thrombocytopenia: Likely secondary to liver dysfunction. No evidence of active bleeding. //Continue chronic methadone dose. Contacted [facility] and verified that patient takes 150mg daily. = Stable on decreased dose of methadone secondary to hypotension. 5 mg daily. //DVT prophylaxis: Heparin drip. Discharge Planning Can go home when she has LifeVest. Po Giordano MD November 26, 2017 16:10
[2017-11-26] MEDS ORDERED: LEVOTHYROXINE SODIUM 50 MCG TAB PO ONE (16:15)
[2017-11-26] MEDS: LORazepam 2 MG/ML VIAL IV PUSH PRN (21:53)
[2017-11-26] MEDS: ONDANSETRON ODT 4 MG TAB PO PRN (22:03)
[2017-11-27 04:20] VITALS: BP 113/58; PULSE 78; RESP 16; TEMP 98; O2SAT 94
[2017-11-27] MEDS ORDERED: LEVOTHYROXINE SODIUM 50 MCG TAB PO SCH (06:00)
[2017-11-27] MEDS: LORazepam 1 MG TAB PO PRN (06:06)
[2017-11-27 07:30] LABS: AUTOMATED NEUTROPHIL # 2.7 TH/MM3 (1.8-7.7); BASOPHIL % 0.5 % (0.0-2.0); EOSINOPHIL # 0.1 TH/MM3 (0-0.4); EOSINOPHIL % 2.7 % (0.0-4.0); HEMATOCRIT 29.4 % (35.0-46.0); HEMOGLOBIN 10.1 GM/DL (11.6-15.3); LYMPH % 11.1 % (9.0-44.0); LYMPHOCYTE # 0.4 TH/MM3 (1.0-4.8); MEAN CELL VOLUME 103.8 FL (80.0-100.0); MEAN CORPUSCULAR HEMOGLOBIN 35.7 PG (27.0-34.0); MEAN CORPUSCULAR HGB CONC 34.4 % (32.0-36.0); MEAN PLATELET VOLUME 8.3 FL (7.0-11.0); MONO % 19.2 % (0.0-8.0); MONOCYTE # 0.8 TH/MM3 (0-0.9); NEUT % 66.5 % (16.0-70.0); PLATELET COUNT 201 TH/MM3 (150-450); RED BLOOD COUNT 2.83 MIL/MM3 (4.00-5.30); RED CELL DISTRIBUTION WIDTH 14.6 % (11.6-17.2)
[2017-11-27 07:59] LABS: ALBUMIN 2.5 GM/DL (3.4-5.0); BICARBONATE 25.5 MEQ/L (21.0-32.0); CALCIUM 8.1 MG/DL (8.5-10.1); CREATININE 0.45 MG/DL (0.50-1.00); MAGNESIUM 1.7 MG/DL (1.5-2.5); PHOSPHORUS 3.6 MG/DL (2.5-4.9)
[2017-11-27 08:00] VITALS: BP 103/71; PULSE 87; RESP 16; TEMP 98.1; O2SAT 94
[2017-11-27] MEDS: SODIUM CHLORIDE 0.9% FLUSH 10 ML FLUSH IV FLUSH SCH (09:00)
[2017-11-27] MEDS: SODIUM CHLOR 0.45% 1000 ML INJ 1,000 ML IV SCH (10:01)
[2017-11-27] MEDS: METHADONE HCL 10 MG TAB PO SCH (10:02)
[2017-11-27] MEDS: MULTIVITAMIN TAB PO SCH (10:03)
[2017-11-27] MEDS: THIAMINE HCL 100 MG TAB PO SCH (10:03)
[2017-11-27] MEDS: FOLIC ACID 1 MG TAB PO SCH (10:03)
[2017-11-27] MEDS: SERTRALINE HCL 50 MG TAB PO SCH (10:03)
--- NOTE | 2017-11-27 10:48 | HHI.DCPOC ---
Discharge Care Plan Diagnosis: (1) Nonischemic cardiomyopathy (2) Alcohol withdrawal (3) Syncope Additional Problems Pt states she tolerates methadone pills better than liquid. She complaints that the liquid causes her to get nauseated. Goals to Promote Your Health * To prevent worsening of your condition and complications * To maintain your health at the optimal level Directions to Meet Your Goals Take your medications as prescribed Follow your dietary instruction Follow activity as directed Keep your appointments as scheduled Take your immunizations and boosters as scheduled If your symptoms worsen call your PCP, if no PCP go to Urgent Care Center or Emergency Room Smoking is Dangerous to Your Health. Avoid second hand smoke Call the 24-hour hour crisis hotline for domestic abuse at Gabriele Mahmood MD Nov 27, 2017 10:48
--- NOTE | 2017-11-27 11:09 | HHI.DS ---
Discharge Summary Admission Date November 22, 2017 at 22:45 Discharge Date: Nov 28, 2017 Admitting Diagnosis syncope, alcohol withdrawal (1) Syncope ICD Code: R55 - Syncope and collapse (2) Cocaine abuse ICD Code: F14.10 - Cocaine abuse, uncomplicated Status: Acute (3) Nonischemic cardiomyopathy ICD Code: I42.8 - Other cardiomyopathies Procedures Cardiac catheterization Brief History - From Admission Patient is a 52-year-old female with past medical history of alcohol abuse, COPD , chronic pain, histoplasmosis, hepatitis C presented to the emergency room for syncopal episode. This was witnessed by her friend. Patient states she was getting out of bed when she "passed out". She denied any chest pain however she felt "smothered ". She states she could not lay down flat because it makes her feel dizzy and "smothered". She admits to nausea and multiple episodes of vomiting about 10 times since yesterday. She initially denies any alcohol use then she admits that she drank 3 days ago and has been feeling shaky. She admits to a couple of beers daily for the past 6 months. She states that the beer helps to "settle her stomach ". She denies any abdominal pain. She states that she felt weak prior to passing out. She has a decrease in appetite. She admits to a cough but thinks is due to her allergies. She denies any fevers or chills. CBC/BMP: 11/27/17 0600 11/27/17 0600 Significant Findings Laboratory Tests Test 11/25/17 06:40 11/25/17 11:16 11/26/17 04:35 11/27/17 06:00 Red Blood Count 3.26 MIL/MM3 (4.00-5.30) 2.82 MIL/MM3 (4.00-5.30) 2.83 MIL/MM3 (4.00-5.30) Hematocrit 34.0 % (35.0-46.0) 29.1 % (35.0-46.0) 29.4 % (35.0-46.0) Mean Corpuscular Volume 104.0 FL (80.0-100.0) 103.4 FL (80.0-100.0) 103.8 FL (80.0-100.0) Mean Corpuscular Hemoglobin 35.8 PG (27.0-34.0) 35.9 PG (27.0-34.0) 35.7 PG (27.0-34.0) Platelet Count 135 TH/MM3 (150-450) Neutrophils (%) (Auto) 70.7 % (16.0-70.0) Monocytes (%) (Auto) 12.7 % (0.0-8.0) 15.4 % (0.0-8.0) 19.2 % (0.0-8.0) Lymphocytes # (Auto) 0.6 TH/MM3 (1.0-4.8) 0.5 TH/MM3 (1.0-4.8) 0.4 TH/MM3 (1.0-4.8) Sodium Level 124 MEQ/L (136-145) 134 MEQ/L (136-145) 134 MEQ/L (136-145) Chloride Level 90 MEQ/L (98-107) Direct Bilirubin 0.3 MG/DL (0.0-0.2) Aspartate Amino Transf (AST/SGOT) 43 U/L (15-37) B-Type Natriuretic Peptide 402 PG/ML (0-100) Albumin 2.8 GM/DL (3.4-5.0) 2.5 GM/DL (3.4-5.0) 2.5 GM/DL (3.4-5.0) Free Thyroxine 0.67 NG/DL (0.76-1.46) Total Triiodothyronine 59 NG/DL (60-181) Thyroid Stimulating Hormone 3rd Gen 22.100 uIU/ML (0.358-3.740) White Blood Count 3.1 TH/MM3 (4.0-11.0) Hemoglobin 10.1 GM/DL (11.6-15.3) 10.1 GM/DL (11.6-15.3) Blood Urea Nitrogen 4 MG/DL (7-18) 2 MG/DL (7-18) Creatinine 0.49 MG/DL (0.50-1.00) 0.45 MG/DL (0.50-1.00) Calcium Level 8.0 MG/DL (8.5-10.1) 8.1 MG/DL (8.5-10.1) PE at Discharge Lying in bed, awake, alert, no acute distress Heart sounds regular rate and rhythm Hospital Course Patient was admitted, underwent cardiac catheterization which apparently did not warrant any stenting. She was to borderline hypotensive to start any CHUCK inhibitors arms or interest of per cardiology. Patient did not have any further episodes of syncope. Tolerating p.o. intake well. Patient has met maximal benefit from hospitalization and she is clinically stable for discharge. Patient had wanted a prescription of her controlled chronic home substances, however she was informed that she had to get these filled on an outpatient basis by the regular prescriber. The [facility] was contacted, and they informed us that the patient could indeed show up on Thursday morning to get her routine medicines dispensed otherwise. Pt Condition on Discharge: Stable Discharge Disposition: Discharge Home Discharge Time: <= 30 minutes Discharge Instructions DIET: Follow Instructions for: Heart Healthy Diet Activities you can perform: Weight Bearing as Fabiana Follow up Referrals: Cardiology - 10 Days PCP Follow-up New Medications: Defibrillator Jacket (Defibrillator Jacket) 1 Ea Device EA EXTERNAL ONCE for nonischemic cardiomyopathy, #1 3 Refills Energy = 150 Joules; VT Threshold = 150 BPM; VF Threshold = 200 BPM Use up to 90 days only Continued Medications: Alprazolam (Xanax) 0.5 Mg Tab 0.5 MG PO DAILY PRN for ANXIETY, TAB 0 Refills Hydroxyzine HCl (Hydroxyzine HCl) 50 Mg Tab 50 MG PO Q6HR, TAB 0 Refills Lidocaine Viscous Liq (Lidocaine Viscous Liq) 2 % Liqd 15 ML SWISH-SWAL Q4HR PRN for PAIN for 10 Days, #1 BOTTLE 0 Refills Mix 15ml with water Methadone (Methadone) 5 Mg Tab 2.5 MG PO DAILY, TAB 0 Refills Sertraline (Zoloft) 50 Mg Tab 50 MG PO DAILY, #30 TAB 0 Refills Gabriele Mahmood MD Nov 27, 2017 11:09
--- NOTE | 2017-11-27 11:52 | MA ---
cc: Ramiro Curran MD DATE: 11/24/2017 DATE OF PROCEDURE: 11/24/2017 PROCEDURE PERFORMED: 1. Fluoroscopy with interpretation. 2. Coronary angiography. METHOD: Risks, benefits, and alternatives discussed with the patient. The patient understood and consented for the procedure. The patient was brought to the catheterization lab and placed on the catheterization table. The right wrist was prepped and draped in sterile fashion. The right wrist was anesthetized with 2% lidocaine. The right radial artery was cannulated and a 6-Palestinian 7 cm sheath was placed without difficulty. CORONARY ANGIOGRAPHY: 1. Left main coronary artery is angiographically normal. 2. Left anterior descending coronary artery was angiographically normal. 3. Left circumflex is angiographically normal. 4. Right coronary artery is a dominant vessel but angiographically normal. PLAN: Angiographically normal coronary arteries. Ramiro Curran MD SIMI/KD , 11:40 AM , 11:51 AM
[2017-11-27] MEDS ORDERED: LORazepam 0.5 MG TAB PO ONE (14:00)
[2017-11-27] MEDS ORDERED: SODIUM CHLORIDE 0.9% FLUSH 10 ML FLUSH IV FLUSH PRN (14:30)
== END 2017-11-27 16:00 | disposition home or self-care (01) | DRG 281 ==
LOC: NEPC 11:47 → NEDA 15:40 → NEPGCP 16:36 → OBSVTOIN 22:45 → HCIS 11-24 11:01 → N04B 11-24 13:13 → N04A 11-24 17:01
PROVIDERS: ADMIT Hospitalist; ATTEND Hospitalist
PROC: B2111ZZ Fluoroscopy of Multiple Coronary Arteries using Low Osmolar Contrast (ICD-10-PCS; 2017-11-24)
PROC: 4A023N7 Measurement of Cardiac Sampling and Pressure, Left Heart, Percutaneous Approach (ICD-10-PCS; principal; 2017-11-24 08:45)
DX: I21.4 Non-ST elevation (NSTEMI) myocardial infarction (principal); I42.9 Cardiomyopathy, unspecified; B39.9 Histoplasmosis, unspecified; D69.6 Thrombocytopenia, unspecified; E87.1 Hypo-osmolality and hyponatremia; F11.20 Opioid dependence, uncomplicated; F10.230 Alcohol dependence with withdrawal, uncomplicated; J44.9 Chronic obstructive pulmonary disease, unspecified; B19.20 Unspecified viral hepatitis C without hepatic coma; F17.200 Nicotine dependence, unspecified, uncomplicated; G89.29 Other chronic pain; F19.10 Other psychoactive substance abuse, uncomplicated; R55 Syncope and collapse; I35.1 Nonrheumatic aortic (valve) insufficiency; E86.0 Dehydration; E03.9 Hypothyroidism, unspecified
CPT/HCPCS: 70450; 71045; 80048; 80053; 80061; 80069; 80076; 80307; 81001; 82550; 82552; 82607; 82746; 83036; 83735; 83880; 84439; 84443; 84480; 84484; 85025; 85027; 85610; 85730; 93005; 93306; 93458; 93880; 95819; 99152; 99285; C1769; C1893; J0780; J1644; J2060; J2250; J3010; J3480; J7030; Q9967

== ENCOUNTER 2018-04-17 10:50 | Observation (INO) ==
--- NOTE | 2018-04-17 11:15 | ED ---
HPI General Chief Complaint: Chest Pain Stated Complaint: chest pain/sob/dizziness Time Seen by Provider: 04/17/18 11:11 Source: patient Mode of arrival: ambulatory Limitations: no limitations History of Present Illness HPI narrative: 52-year-old female patient with history of hypertension, head and neck cancer, recent history of syncope and currently has a Holter monitor, is supposed to follow-up with Dr. Soto, presents to the ER today because she states that over the last few days she has been having more short of breath, dyspnea on exertion, chest tightness which she rates an 8 out of 10. She states that it feels like something sitting on her chest. She is dizzy, states that some of the symptoms are similar to when she had her head and neck cancer issues. Related Data Home Medications Medication Instructions Recorded Confirmed alprazolam [Xanax] 0.5 mg PO BID 04/17/18 04/17/18 methadone 150 mg PO DAILY 04/17/18 04/17/18 multivitamin 0 mg PO DAILY 04/17/18 04/17/18 Allergies Allergy/AdvReac Type Severity Reaction Status Date / Time No Known Allergies Allergy Verified 04/17/18 11:11 Review of Systems ROS: all other systems reviewed are negative FORMERLY [facility], [facility]1983 Medical History Medical History H/O: hysterectomy (Acute) Head and neck cancer (Acute) Tubal (Acute) Surgical History Surgical History H/O knee surgery (Acute) Social History Social History Substance History: No History of Abuse Second Hand Smoke Exposure: No Smoking Status: Current some day smoker Tobacco Type: Cigarettes How Often Do You Have a Drink Containing Alcohol: 2 to 3 times a week Recent Travel in [facility] within the Last 8 Weeks: No Recent Out of Country Travel within the Last 8 Weeks: No Immunization History Tetanus Immunization: Unsure Exam Narrative Exam Narrative: GENERAL: Middle aged female patient currently in moderate distress, appears anxious. Awake and oriented x3. SKIN: Focused skin assessment warm/dry. HEAD: Atraumatic. Normocephalic. EYES: Pupils equal and round. No scleral icterus. No injection or drainage. ENT: No nasal bleeding or discharge. Mucous membranes pink and moist. NECK: Trachea midline. No JVD. No palpable mass. Nontender to palpation. CARDIOVASCULAR: Regular rate and rhythm. No murmur appreciated. RESPIRATORY: No accessory muscle use. Decreased to auscultation bilaterally. Breath sounds equal bilaterally. GASTROINTESTINAL: Abdomen soft, non-tender, nondistended. Hepatic and splenic margins not palpable. MUSCULOSKELETAL: No obvious deformities. No clubbing. No cyanosis. No edema. NEUROLOGICAL: Awake and alert. No obvious cranial nerve deficits. Motor grossly within normal limits. Normal speech. PSYCHIATRIC: Anxious mood and affect; insight and judgment normal. Course Initial Documented Vital Signs Temperature 98.3 F 04/17/18 10:54 Pulse Rate 73 04/17/18 10:54 Respiratory Rate 22 04/17/18 10:54 Blood Pressure 153/68 H 04/17/18 10:54 Pulse Oximetry 97 04/17/18 10:54 Last Documented Vital Signs Temperature 97.6 F 04/17/18 11:05 Pulse Rate 86 04/17/18 12:00 Respiratory Rate 18 04/17/18 12:00 Blood Pressure 160/72 H 04/17/18 12:00 Pulse Oximetry 98 04/17/18 12:00 Medical Decision Making MDM Narrative Medical decision making narrative: EKG was fairly unremarkable. Troponins are negative. She was given aspirin in the ER. Her lab work did show some signs of hyponatremia. IV fluids were given in the ER. Plan would be to admit her for further evaluation of chest pain. Especially with previous cardiac history. Medical Screen Exam Complete: Yes Emergency Medical Condition: Yes Differential Diagnosis Differential Diagnosis: Anxiety attack versus pneumonia versus dysrhythmias versus dehydration versus metabolic issues versus ACS Lab Data Lab results reviewed: Yes I reviewed the patient's lab results. Result diagrams: 04/17/18 11:29 04/17/18 11:29 Lab Results 04/17/18 04/17/18 04/17/18 Range/Units 11:29 11:29 11:29 WBC 4.6 (4.0-11.0) th/mm3 RBC 3.51 L (4.00-5.30) mil/mm3 Hgb 12.1 (11.6-15.3) gm/dL Hct 34.8 L (35.0-46.0) % MCV 99.2 (80.0-100.0) fL MCH 34.5 H (27.0-34.0) pg MCHC 34.7 (32.0-36.0) % RDW 13.3 (11.6-17.2) % Plt Count 211 (150-450) th/mm3 MPV 7.7 (7.0-11.0) fL Neut % (Auto) 74.7 H (16.0-70.0) % Lymph % (Auto) 13.8 (9.0-44.0) % Stone % (Auto) 9.2 H (0.0-8.0) % Eos % (Auto) 1.6 (0.0-4.0) % Baso % (Auto) 0.7 (0.0-2.0) % Neut # (Auto) 3.4 (1.8-7.7) th/mm3 Lymph # (Auto) 0.6 L (1.0-4.8) th/mm3 Stone # (Auto) 0.4 (0.0-0.9) th/mm3 Eos # (Auto) 0.1 (0.0-0.4) th/mm3 Baso # (Auto) 0.0 (0.0-0.2) th/mm3 WBC Differential . Differential Comment Auto diff final Sodium 128 L (136-145) meq/L Potassium 3.5 (3.5-5.1) meq/L Chloride 90 L (98-107) meq/L Carbon Dioxide 28.5 (21.0-32.0) meq/L Anion Gap 10 (5-15) meq/L BUN 5 L (7-18) mg/dL Creatinine 0.58 (0.50-1.00) mg/dL Estimated GFR Greater than 89 (>89) mL/min Random Glucose 94 (74-106) mg/dL Calcium 9.0 (8.5-10.1) mg/dL Total Bilirubin 0.4 (0.2-1.0) mg/dL AST 32 (15-37) U/L ALT 30 (10-53) U/L Alkaline Phosphatase 97 (45-117) U/L Troponin I Less than 0.02 L (0.02-0.05) ng/mL B-Natriuretic Peptide 113 H (0-100) pg/mL Total Protein 7.8 (6.4-8.2) g/dL Albumin 3.7 (3.4-5.0) g/dL Imaging Data Attestation: I personally reviewed and interpreted this imaging study as follows : Radiologist's impression: Chest X-Ray 04/17/18 11:12 CONCLUSION: Stable appearance with no acute cardiac pulmonary disease. ECG Data Attestation: I personally reviewed and interpreted this ECG as follows: Interpretation: EKG shows normal sinus rhythm at a rate of no signs of acute ST elevations or depressions. Discharge Plan Discharge Disposition Patient Disposition: 30 Still Patient Discharge Condition Condition: Stable Discharge Details Anticipated Discharge Date: 04/17/18 Diagnosis: Atypical chest pain, Hyponatremia Physicians Team ED Provider: Tomas Kamara Primary Care Provider: UNKNOWN, Rxs /Orders / Referrals /Forms Prescriptions: No Action methadone 40 mg Tablet,Soluble 150 mg PO DAILY RF: 0 alprazolam [Xanax] 0.5 mg Tablet 0.5 mg PO BID RF: 0 multivitamin Capsule PO DAILY RF: 0 Discharge Instructions Patient Printed Instructions: Chest Pain (ED) Discharge Interventions Interventions: Vital Signs Last Done: 04/17/18 12:00 Status ED Status: With Doctor
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
[2018-04-17] MEDS ORDERED: Aspirin 325 MG Tablet PO ONE (11:37)
[2018-04-17 11:59] LABS: Baso % (Auto) 0.7 % (0.0-2.0); Eos # (Auto) 0.1 th/mm3 (0.0-0.4); Eos % (Auto) 1.6 % (0.0-4.0); Hematocrit 34.8 % (35.0-46.0); Hemoglobin 12.1 gm/dL (11.6-15.3); Lymph # (Auto) 0.6 th/mm3 (1.0-4.8); Lymph % (Auto) 13.8 % (9.0-44.0); Mean Corpuscular HGB Conc 34.7 % (32.0-36.0); Mean Corpuscular Hemoglobin 34.5 pg (27.0-34.0); Mean Corpuscular Volume 99.2 fL (80.0-100.0); Mean Platelet Volume 7.7 fL (7.0-11.0); Mono # (Auto) 0.4 th/mm3 (0.0-0.9); Mono % (Auto) 9.2 % (0.0-8.0); Neut # (Auto) 3.4 th/mm3 (1.8-7.7); Neut % (Auto) 74.7 % (16.0-70.0); Platelet Count 211 th/mm3 (150-450); Red Blood Count 3.51 mil/mm3 (4.00-5.30); Red Cell Distribution Width 13.3 % (11.6-17.2); White Blood Count 4.6 th/mm3 (4.0-11.0)
[2018-04-17 12:45] LABS: Albumin 3.7 g/dL (3.4-5.0); Anion Gap 10 meq/L (5-15); Aspartate Aminotransferase 32 U/L (15-37); Blood Urea Nitrogen 5 mg/dL (7-18); Carbon Dioxide 28.5 meq/L (21.0-32.0); Chloride 90 meq/L (98-107); Glomerular Filtration Rate Greater Than 89 mL/min (>89); Glucose,Random 94 mg/dL (74-106); Potassium 3.5 meq/L (3.5-5.1); Sodium 128 meq/L (136-145)
[2018-04-17 12:47] LABS: Alanine Aminotransferase 30 U/L (10-53)
[2018-04-17 12:51] LABS: Alkaline Phosphatase 97 U/L (45-117); Total Protein 7.8 g/dL (6.4-8.2)
[2018-04-17] MEDS ORDERED: LORazepam 0.5 MG Tablet PO ONE (13:33)
[2018-04-17] MEDS ORDERED: Sodium Chlor 0.9% Inj 500 ML IV.SIG SCH (14:00)
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
[2018-04-17] MEDS ORDERED: Haloperidol Inj 5 MG/ML Ampul IV.PUSH PRN (14:59)
[2018-04-17] MEDS ORDERED: LORazepam 1 MG Tablet PO PRN (14:59)
[2018-04-17 15:46] LABS: Lipase 101 U/L (73-393); Magnesium 1.7 mg/dL (1.5-2.5)
[2018-04-17] MEDS: Folic Acid 1 MG Tablet PO SCH (17:43)
[2018-04-17] MEDS: Multivitamin/Minerals Therapeutic Tablet PO SCH (17:43)
[2018-04-17] MEDS: Sod Chloride 0.9% Inj 1,000 ML IV.CONT SCH (17:44)
[2018-04-17 17:48] LABS: Baso % (Auto) 0.8 % (0.0-2.0); Eos # (Auto) 0.1 th/mm3 (0.0-0.4); Eos % (Auto) 2.3 % (0.0-4.0); Hematocrit 34.7 % (35.0-46.0); Hemoglobin 11.9 gm/dL (11.6-15.3); Lymph # (Auto) 0.8 th/mm3 (1.0-4.8); Lymph % (Auto) 19.9 % (9.0-44.0); Mean Corpuscular HGB Conc 34.4 % (32.0-36.0); Mean Corpuscular Hemoglobin 34.4 pg (27.0-34.0); Mean Corpuscular Volume 100.2 fL (80.0-100.0); Mean Platelet Volume 10.4 fL (7.0-11.0); Mono # (Auto) 0.2 th/mm3 (0.0-0.9); Mono % (Auto) 5.8 % (0.0-8.0); Neut # (Auto) 2.8 th/mm3 (1.8-7.7); Neut % (Auto) 71.2 % (16.0-70.0); Platelet Count 127 th/mm3 (150-450); Red Blood Count 3.46 mil/mm3 (4.00-5.30); Red Cell Distribution Width 13.3 % (11.6-17.2); White Blood Count 3.9 th/mm3 (4.0-11.0)
[2018-04-17 18:27] LABS: Albumin 3.4 g/dL (3.4-5.0); Anion Gap 8 meq/L (5-15); Aspartate Aminotransferase 35 U/L (15-37); Blood Urea Nitrogen 3 mg/dL (7-18); Calcium 8.5 mg/dL (8.5-10.1); Chloride 95 meq/L (98-107); Glomerular Filtration Rate Greater Than 89 mL/min (>89); Glucose,Random 132 mg/dL (74-106); Potassium 3.5 meq/L (3.5-5.1); Sodium 130 meq/L (136-145)
[2018-04-17 18:29] LABS: Alanine Aminotransferase 26 U/L (10-53)
[2018-04-17 18:38] LABS: Alkaline Phosphatase 89 U/L (45-117); Free T4 (Free Thyroxine) 0.61 ng/dL (0.76-1.46); Total Protein 7.6 g/dL (6.4-8.2); Triiodothyronine (T3) Free 2.21 pg/mL (2.18-3.98)
[2018-04-17 18:42] LABS: Creatine Kinase 55 U/L (26-192)
--- NOTE | 2018-04-17 19:36 | ECG ---
Date Performed: 04/17/2018 Time Performed: 11:03:31 PTAGE: 52 years EKG: Sinus rhythm POSSIBLE LEFT ATRIAL ENLARGEMENT BORDERLINE ECG PREVIOUS TRACING : 11/23/2017 09.04 Since the previous tracing, no significant change noted DOCTOR: Morelia Antony Interpretating Date/Time 04/17/2018 19:34:57
[2018-04-17] MEDS: Famotidine 20 MG Tablet PO SCH (20:20)
[2018-04-17] MEDS ORDERED: Ketorolac Inj 30 MG/ML (IVP) Vial IV.PUSH PRN ×2 (22:10)
[2018-04-17] MEDS ORDERED: Acetaminophen 325 MG Tablet PO PRN (22:10)
[2018-04-17] MEDS ORDERED: Naloxone Inj 0.4 MG/ML Vial IV.PUSH PRN (22:10)
[2018-04-18] MEDS ORDERED: Acetaminophen 325 MG Tablet PO PRN (00:45)
[2018-04-18 00:53] LABS: Creatine Kinase 46 U/L (26-192)
[2018-04-18] MEDS: Sod Chloride 0.9% Inj 1,000 ML IV.CONT SCH (02:53)
[2018-04-18 03:40] VITALS: TEMP 97.7
[2018-04-18 07:53] VITALS: BP 128/60; RESP 18
[2018-04-18 08:02] VITALS: O2SAT 96
[2018-04-18] MEDS ORDERED: Methadone 10 MG Tablet PO SCH (09:00)
[2018-04-18] MEDS: Famotidine 20 MG Tablet PO SCH (09:20)
[2018-04-18] MEDS: Multivitamin/Minerals Therapeutic Tablet PO SCH (09:20)
[2018-04-18] MEDS: Folic Acid 1 MG Tablet PO SCH (09:20)
--- NOTE | 2018-04-18 11:02 | P.HPFP ---
History of Present Illness Primary Care Physician: UNKNOWN History of Present Illness: Patient seen this morning during rounds with medical team. She feels much better this morning and denies any chest pain or chest pressure. She states that she did have some nausea with an episode of emesis x1, however denies nausea at this time after receiving Zofran. Denies any chest pain or palpitations now, denies any shortness of breath, denies any headaches or vision changes. Overall she states that she feels relatively well. In summary, this is a 52-year-old female who presented to the emergency department with complaints of chest discomfort. She has a history of NSTEMI with a low EF of less than 20% noted from hospital stay in 10/2017. At that time she was discharged with a LifeVest and instructed to follow-up with cardiology. She has not followed up with a cook station, however has been referred to one from her primary care doctor. She comes to the emergency department with a complaint of 1 day of chest discomfort associated with a feeling of palpitations and blurred vision. She also complains of some numbness and tingling in her hands and feet. She denies any syncopal episode. She denies any shortness of breath. She denies any lower extremity swelling or edema. 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 Was treated with radiation and following w/Dr. Sterling since then. Last saw her 6 weeks ago. Feels like her cancer is acting up again because her throat/neck feels painful and swollen. Has a port in place in the right upper chest as part of cancer treatment in the past. - Diagnosis (1) Atypical chest pain (2) Hyponatremia (3) Nausea (4) Alcohol abuse (5) Opioid dependence (6) Anxiety (7) History of head and neck cancer (8) Nutrition, metabolism, and development symptoms (9) DVT prophylaxis PMFSH - History History Provided By: Patient - Medical History Medical History: Medical History (Last Updated 04/17/18 @ 18:14 by Carline Dawkins MD, R2) COPD (chronic obstructive pulmonary disease) Chronic pain H/O: hysterectomy Head and neck cancer Hepatitis C Hx of histoplasmosis Opioid dependence Tubal - Surgical History Surgical History: Surgical History (Last Reviewed 04/17/18 @ 11:17 by Tomas Kamara MD) H/O knee surgery - Family History Family History: Family History (Last Updated 04/17/18 @ 18:13 by Carline Dawkins MD, R2) Father Heart attack Mother Lung disease - Tobacco History Second Hand Smoke Exposure: No Tobacco Use In Past 30 Days: Yes Smoking Status: Current some day smoker Tobacco Type: Cigarettes - Alcohol History How Often Do You Have a Drink Containing Alcohol: 4 or more times a week - Substance Use History Substance History: No History of Abuse, Past History - Substance Use Type Crack/Cocaine Status: Sustained Remission - Travel History Recent Travel in the [place] Within the Last 8 Weeks: No Recent Travel Out of the Country Within the Last 8 Weeks: No - Immunization History Tetanus Immunization: Unsure Medications and Allergies Active Medications: Active Medications Acetaminophen (Tylenol) 650 mg PO Q6H PRN PRN Reason: PAIN SCALE 1 TO 2 Clonidine HCl (Catapres) 0.1 mg PO Q6H PRN PRN Reason: For SBP >/= 180, DBP >/= 100 Famotidine (Pepcid) 20 mg PO BID [facility] Last Admin: 04/18/18 09:20 Dose: 20 mg Flumazenil (Romazecon Inj) 0.2 mg IV.PUSH Q1M PRN PRN Reason: OVERSEDATION Folic Acid (Folic Acid) 1 mg PO DAILY [facility] Stop: 04/22/18 15:14 Last Admin: 04/18/18 09:20 Dose: 1 mg Haloperidol Lactate (Haldol Inj) 1 mg IV.PUSH Q15M PRN PRN Reason: for severe agitation Hydroxyzine HCl (Atarax) 50 mg PO Q6H [facility] Last Admin: 04/18/18 06:03 Dose: 50 mg Sodium Chloride (Ns Inj) 500 mls @ 0 mls/hr IV.SIG BOLUS [facility] Last Infusion: 04/17/18 15:12 Dose: Infused Ketorolac Tromethamine (Toradol Inj) 15 mg IV.PUSH Q6H PRN PRN Reason: PAIN 3-10; IF UABLE TO TAKE PO Stop: 04/22/18 22:09 Lorazepam (Ativan) 1 mg PO Q4H PRN PRN Reason: for CIWA 8-10 Lorazepam (Ativan) 2 mg PO Q2H PRN PRN Reason: for CIWA 11-14 Lorazepam (Ativan Inj) 2 mg IV.PUSH Q2H PRN PRN Reason: for CIWA 11-14 Lorazepam (Ativan Inj) 2 mg IV.PUSH Q1H PRN PRN Reason: for CIWA 15-20 Lorazepam (Ativan Inj) 2 mg IV.PUSH Q15M PRN PRN Reason: for CIWA > 20 Lorazepam (Ativan Inj) 1 mg IV.PUSH Q4H PRN PRN Reason: for CIWA 8-10 Methadone HCl (Dolophine) 150 mg PO DAILY [facility] Last Admin: 04/18/18 09:20 Dose: 150 mg Multivitamins/Minerals (Theragran-M) 1 tab PO DAILY [facility] Stop: 04/22/18 15:14 Last Admin: 04/18/18 09:20 Dose: 1 tab Naloxone HCl (Narcan Inj) 0.4 mg IV.PUSH UNSCH PRN PRN Reason: SEE LABEL COMMENTS Ondansetron HCl (Zofran Inj) 4 mg IV.PUSH Q6H PRN PRN Reason: NAUSEA OR VOMITING Last Admin: 04/18/18 09:38 Dose: 4 mg Thiamine HCl (Vitamin B1) 100 mg PO DAILY [facility] Last Admin: 04/18/18 09:20 Dose: 100 mg Allergies Allergy/AdvReac Type Severity Reaction Status Date / Time No Known Allergies Allergy Verified 04/17/18 11:11 Home Medications Medication Instructions Recorded Confirmed Type alprazolam [Xanax] 0.5 mg PO BID 04/17/18 04/17/18 History methadone 150 mg PO DAILY 04/17/18 04/17/18 History multivitamin 0 mg PO DAILY 04/17/18 04/17/18 History Exam Vital signs: Vital Signs 04/17/18 11:05 04/17/18 11:23 04/17/18 12:00 Temperature 97.6 F Pulse Rate 70 86 Respiratory Rate 18 18 Blood Pressure 172/91 H 160/72 H Pulse Oximetry 98 98 98 04/17/18 13:35 04/17/18 13:58 04/17/18 14:22 Temperature Pulse Rate 60 65 Respiratory Rate 18 16 18 Blood Pressure 160/93 H 160/93 H Pulse Oximetry 96 99 04/17/18 16:40 04/17/18 20:00 04/17/18 23:47 Temperature 98.6 F 98.7 F 98.3 F Pulse Rate 56 L 61 56 L Respiratory Rate 18 18 Blood Pressure 153/79 H 140/76 149/70 H Pulse Oximetry 96 95 95 04/18/18 00:00 04/18/18 03:39 04/18/18 04:20 Temperature 97.7 F Pulse Rate 60 57 L 55 L Respiratory Rate 16 Blood Pressure 123/69 Pulse Oximetry 93 L 04/18/18 07:51 04/18/18 08:02 Temperature 97.7 F Pulse Rate 53 L Respiratory Rate 18 Blood Pressure 128/60 Pulse Oximetry 94 L 96 Intake & Output 04/17/18 04/18/18 04/18/18 18:59 06:59 18:59 Intake Total 980 / 980 1000 / 1000 300 / 300 Balance 980 / 980 1000 / 1000 300 / 300 Weight 47.174 kg Intake: IV 500 / 500 1000 / 1000 300 / 300 NS Inj 1,000 ML @ 76 mls/hr IV. 1000 / 1000 300 / 300 CONT .[id number] MIL Rx#:[id number] NS Inj 500 ML @ Wide Open IV. 500 / 500 SIG BOLUS MIL Rx#:[id number] Oral 480 / 480 Other: # Voids 2 6 Weight On Admission 47.174 kg Narrative: GENERAL: Thin, pale woman sitting in bed in no obvious distress SKIN: Warm and dry. Port in place in right upper chest. HEAD: Atraumatic. Normocephalic. CARDIOVASCULAR: Regular rate and rhythm. RESPIRATORY: No accessory muscle use. Clear to auscultation. Breath sounds equal bilaterally. GASTROINTESTINAL: Abdomen soft, non-tender, nondistended. MUSCULOSKELETAL: Extremities without clubbing, cyanosis, or edema. No obvious deformities. NEUROLOGICAL: Awake and alert. No obvious cranial nerve deficits. Normal speech. Results - Labs Result diagrams: 04/17/18 17:31 04/17/18 17:31 Abnormal lab results 04/17/18 04/17/18 04/17/18 Range/Units 11:29 11:29 11:29 WBC (4.0-11.0) th/mm3 RBC 3.51 L (4.00-5.30) mil/mm3 Hct 34.8 L (35.0-46.0) % MCV (80.0-100.0) fL MCH 34.5 H (27.0-34.0) pg Plt Count (150-450) th/mm3 Neut % (Auto) 74.7 H (16.0-70.0) % [place] % (Auto) 9.2 H (0.0-8.0) % Lymph # (Auto) 0.6 L (1.0-4.8) th/mm3 Sodium 128 L (136-145) meq/L Chloride 90 L (98-107) meq/L BUN 5 L (7-18) mg/dL Random Glucose (74-106) mg/dL Troponin I Less than 0.02 L (0.02-0.05) ng/mL B-Natriuretic Peptide 113 H (0-100) pg/mL TSH 13.600 H (0.358-3.740) uIU/mL Free T4 (0.76-1.46) ng/dL 04/17/18 04/17/18 04/17/18 Range/Units 17:31 17:31 23:40 WBC 3.9 L (4.0-11.0) th/mm3 RBC 3.46 L (4.00-5.30) mil/mm3 Hct 34.7 L (35.0-46.0) % MCV 100.2 H (80.0-100.0) fL MCH 34.4 H (27.0-34.0) pg Plt Count 127 L D (150-450) th/mm3 Neut % (Auto) 71.2 H (16.0-70.0) % [place] % (Auto) (0.0-8.0) % Lymph # (Auto) 0.8 L (1.0-4.8) th/mm3 Sodium 130 L (136-145) meq/L Chloride 95 L (98-107) meq/L BUN 3 L (7-18) mg/dL Random Glucose 132 H (74-106) mg/dL Troponin I Less than 0.02 L Less than 0.02 L (0.02-0.05) ng/mL B-Natriuretic Peptide (0-100) pg/mL TSH (0.358-3.740) uIU/mL Free T4 0.61 L (0.76-1.46) ng/dL Short CBC 04/17/18 04/17/18 Range/Units 11:29 17:31 WBC 4.6 3.9 L (4.0-11.0) th/mm3 Hgb 12.1 11.9 (11.6-15.3) gm/dL Hct 34.8 L 34.7 L (35.0-46.0) % Plt Count 211 127 L D (150-450) th/mm3 BMP 04/17/18 04/17/18 11:29 17:31 Sodium 128 L 130 L Potassium 3.5 3.5 Chloride 90 L 95 L Carbon Dioxide 28.5 27.0 BUN 5 L 3 L Creatinine 0.58 0.65 Calcium 9.0 8.5 Cardiac Enzymes 04/17/18 04/17/18 04/17/18 Range/Units 11:29 17:31 17:31 Total Creatine Kinase 55 Cancelled (26-192) U/L Troponin I Less than 0.02 L Less than 0.02 L (0.02-0.05) ng/mL 04/17/18 Range/Units 23:40 Total Creatine Kinase 46 (26-192) U/L Troponin I Less than 0.02 L (0.02-0.05) ng/mL Liver Function 04/17/18 04/17/18 Range/Units 11:29 17:31 Total Bilirubin 0.4 0.4 (0.2-1.0) mg/dL AST 32 35 (15-37) U/L ALT 30 26 (10-53) U/L Alkaline Phosphatase 97 89 (45-117) U/L Albumin 3.7 3.4 (3.4-5.0) g/dL - Imaging Impressions Chest X-Ray 04/17/18 11:12 CONCLUSION: Stable appearance with no acute cardiac pulmonary disease. Caprini VTE Risk Assessment Caprini VTE Risk Assessment: No/Low Risk (score <= 1) Caprini Risk Assessment Model: Point Value = 1 Point Value = 2 Point Value = 3 Point Value = 5 Age 41-60 Minor surgery BMI > 25 kg/m2 Swollen legs Varicose veins or History of unexplained or recurrent spontaneous Oral contraceptives or hormone replacement Sepsis (< 1 month) Serious lung disease, including pneumonia (< 1 month) Abnormal pulmonary function Acute myocardial infarction Congestive heart failure (< 1 month) History of inflammatory bowel disease Medical patient at bed rest Age 61-74 Arthroscopic surgery Major open surgery (> 45 min) Laparoscopic surgery (> 45 min) Malignancy Confined to bed (> 72 hours) Immobilizing plaster cast Central venous access Age >= 75 History of VTE Family history of VTE Factor V Leiden Prothrombin [id number] Lupus anticoagulant Anticardiolipin antibodies Elevated serum homocysteine Heparin-induced thrombocytopenia Other congenital or acquired thrombophilia Stroke (< 1 month) Elective arthroplasty Hip, pelvis, or leg fracture Acute spinal cord injury (< 1 month) Prophylaxis Regimen: Total Risk Factor Score Risk Level Prophylaxis Regimen 0-1 Low Early ambulation 2 Moderate Order ONE of the following: *Sequential Compression Device (SCD) *Heparin 5000 units SQ BID 3-4 Higher Order ONE of the following medications: *Heparin 5000 units SQ TID *Enoxaparin/Lovenox 40 mg SQ daily (WT < 150 kg, CrCl > 30 mL/min) *Enoxaparin/Lovenox 30 mg SQ daily (WT < 150 kg, CrCl > 10-29 mL/min) *Enoxaparin/Lovenox 30 mg SQ BID (WT < 150 kg, CrCl > 30 mL/min) AND/OR *Sequential Compression Device (SCD) 5 or more Highest Order ONE of the following medications: *Heparin 5000 units SQ TID (Preferred with Epidurals) *Enoxaparin/Lovenox 40 mg SQ daily (WT < 150 kg, CrCl > 30 mL/min) *Enoxaparin/Lovenox 30 mg SQ daily (WT < 150 kg, CrCl > 10-29 mL/min) *Enoxaparin/Lovenox 30 mg SQ BID (WT < 150 kg, CrCl > 30 mL/min) AND *Sequential Compression Device (SCD) Assessment and Plan - Assessment (1) Atypical chest pain Code(s): R07.89 - Other chest pain Status: Acute Plan: EKG reviewed with no acute changes or ST abnormalities ACS evaluation with troponins x3 that were all negative Telemetry evaluated with no ectopy noted TSH elevated with low available T4 -Begin levothyroxine 50 mcg daily Likely discharge later today for follow-up with her primary care provider and cook station (2) Hyponatremia Code(s): E87.1 - Hypo-osmolality and hyponatremia Status: Acute Plan: Diff: alcoholism v siadh IVF @ 76 mls/hr Improved this morning (3) Nausea Code(s): R11.0 - Nausea Status: Acute Plan: Zofran PRN Pepcid BID Lipase within normal limits (4) Alcohol abuse Code(s): F10.10 - Alcohol abuse, uncomplicated Status: Acute Plan: CIWA protocol Rally pack (5) Opioid dependence Code(s): F11.20 - Opioid dependence, uncomplicated Status: Acute Plan: Continue home methadone (6) Anxiety Code(s): F41.9 - Anxiety disorder, unspecified Status: Acute Plan: Hydroxyzine 50 mg q6H (seen in old documentation) (7) History of head and neck cancer Code(s): Z85.89 - Personal history of malignant neoplasm of other organs and systems Status: Acute Plan: Cancer in remission since radiation tx Following w/Dr. Sterling outpatient (8) Nutrition, metabolism, and development symptoms Code(s): R63.8 - Other symptoms and signs concerning food and fluid intake Status: Acute Plan: Fluids: NS@76 mls/hr Electrolytes: PRN, 0.9% NS for hyponatremia, check BMP Nutrition: Reg diet (9) DVT prophylaxis Status: Acute Plan: None indicated, encourage ambulation H&P: Quality - VTE Deep Vein Thrombosis/Pulmonary Embolism Present on Admission: No
[2018-04-18 11:16] VITALS: PULSE 57
[2018-04-18] MEDS ORDERED: Heparin Central Flush 100 UNIT/ML 5 ML Vial IV.FLUSH ONE (12:00)
--- NOTE | 2018-04-18 22:22 | ECG ---
Date Performed: 04/17/2018 Time Performed: 18:38:38 PTAGE: 52 years EKG: SINUS BRADYCARDIA BORDERLINE ECG PREVIOUS TRACING : 04/17/2018 11.03 Since the previous tracing, no significant change noted DOCTOR: Morelia Antony Interpretating Date/Time 04/18/2018 22:20:54
== END 2018-04-18 12:57 | disposition home or self-care (01) ==
LOC: NEPE 10:50 → NEDA 10:50 → NEPGCP 15:59
PROVIDERS: ADMIT Family Medicine; ATTEND Family Medicine